=== PATIENT | male | born 1960 | race Caucasian/White ===

== ENCOUNTER 2017-07-29 13:41 | Emergency (ER) | payer BC, OTHER ==
[2017-07-29 13:55] VITALS: RESP 18
--- NOTE | 2017-07-29 15:48 | ED ---
General Adult HPI - General Chief complaint: ENT Stated complaint: Nose Bleed Time Seen by Provider: 07/29/17 15:04 Source: patient, RN notes reviewed, old records reviewed Mode of arrival: ambulatory Limitations: no limitations - History of Present Illness Initial comments: this is a 56-year-old male to the ER for evaluation. Patient coming in for multiple complaints. Patient's complaints center around HEENT, patient has runny nose and occasional bleeding, cough and ear pain. Patient denies any recent fevers. Patient has history of diabetes, history of high blood pressure. Patient recently had left near cauterized secondary to nose bleeding and epistaxis. Patient is not on blood thinners. Patient has history of epistaxis. Patient is also had recurrent episodes of dizziness as of late. Again denies any head trauma, but does have occasional headaches - Related Data Home Medications Medication Instructions Recorded Confirmed Dulaglutide [Trulicity] 1.5 mg SQ MO 07/29/17 07/29/17 Fenofibric Acid (Choline) 135 mg PO DAILY 07/29/17 07/29/17 [Trilipix] Insulin Glargine,Hum.rec.anlog 65 units SQ HS 07/29/17 07/29/17 [Toujeo Solostar] Lisinopril [Prinivil] 5 mg PO DAILY 07/29/17 07/29/17 Multivitamins, Thera [Multivitamin 1 tab PO DAILY 07/29/17 07/29/17 (formulary)] amLODIPine [Norvasc] 2.5 mg PO DAILY 07/29/17 07/29/17 Previous Rx's Medication Instructions Recorded Amoxic-Pot Clav 875-125Mg 1 tab PO Q12HR #20 tablet 07/29/17 [Augmentin 875-125] Allergies Allergy/AdvReac Type Severity Reaction Status Date / Time No Known Allergies Allergy Verified 07/29/17 15:49 Review of Systems ROS Statement: Those systems with pertinent positive or pertinent negative responses have been documented in the HPI. ROS Other: All systems not noted in ROS Statement are negative. Past Medical History Past Medical History: Diabetes Mellitus, Hypertension History of Any Multi-Drug Resistant Organisms: None Reported Additional Past Surgical History / Comment(s): deviated septum Past Psychological History: No Psychological Hx Reported Smoking Status: Current some day smoker Past Alcohol Use History: None Reported Past Drug Use History: None Reported General Exam Limitations: no limitations General appearance: alert, in no apparent distress Head exam: Present: atraumatic, normocephalic, normal inspection Eye exam: Present: normal appearance, PERRL, EOMI. Absent: scleral icterus, conjunctival injection, periorbital swelling ENT exam: Present: normal exam, mucous membranes moist, other ((epistaxis, cauterized, bilateral ear cerumen impaction) Neck exam: Present: normal inspection. Absent: tenderness, meningismus, lymphadenopathy Respiratory exam: Present: normal lung sounds bilaterally. Absent: respiratory distress, wheezes, rales, rhonchi, stridor Cardiovascular Exam: Present: regular rate, normal rhythm, normal heart sounds. Absent: systolic murmur, diastolic murmur, rubs, gallop, clicks GI/Abdominal exam: Present: soft, normal bowel sounds. Absent: distended, tenderness, guarding, rebound, rigid Extremities exam: Present: normal inspection, full ROM, normal capillary refill. Absent: tenderness, pedal edema, joint swelling, calf tenderness Back exam: Present: normal inspection Neurological exam: Present: alert, oriented X3, CN II-XII intact Psychiatric exam: Present: normal affect, normal mood Skin exam: Present: warm, dry, intact, normal color. Absent: rash Course Vital Signs 07/29/17 07/29/17 07/29/17 13:51 16:17 17:12 Temperature 101.5 F H 102.2 F H 101.6 F H Pulse Rate 106 H 104 H Respiratory 18 18 Rate Blood Pressure 132/73 138/69 O2 Sat by Pulse 97 98 Oximetry - Reevaluation(s) Reevaluation #1: 07/29/17 16:49 patient has bilateral serum impaction removed Reevaluation #2: 07/29/17 16:49 patient is able to ambulate without ataxia Reevaluation #3: 07/29/17 16:49 patient feeling better with fever control Medical Decision Making - Medical Decision Making 56 male the ER for evaluation of recurrent epistaxis, sinusitis, serum impaction is improved, patient given antibiotics here in the ER fever control can be discharged home, patient does have positive influenza, no need for Tamiflu, symptoms 1 week - Lab Data Lab Results 07/29/17 Range/Units 16:16 Influenza Type A RNA Detected H (Not Detectd) Influenza Type B (PCR) Not Detected (Not Detectd) - Radiology Data Radiology results: report reviewed (CT brain facial bones. Acute sinusitis, chest x-rays negative for acute disease), image reviewed Disposition Clinical Impression: Cerumen impaction, Left-sided epistaxis, Acute sinusitis, Fever, Influenza A Disposition: HOME SELF-CARE Condition: Good Instructions: Sinusitis (ED), Nosebleed (ED), Influenza (ED) Prescriptions: Amoxic-Pot Clav 875-125Mg [Augmentin 875-125] 1 tab PO Q12HR #20 tablet Referrals: Buster Rios MD [Primary Care Provider] - 1-2 days
[2017-07-29] MEDS ORDERED: IBUPROFEN 600 MG TAB PO STA (16:16)
[2017-07-29] MEDS ORDERED: ACETAMINOPHEN TAB 500 MG TAB PO STA (16:16)
--- NOTE | 2017-07-29 16:18 | CT ---
EXAMINATION TYPE: CT brain wo con, CT facial bones wo con DATE OF EXAM: 07/29/2017 HISTORY: Headache with nosebleeds for 9 days. History of nosebleeds and cauterization. CT DLP: 999.80 mGycm. Automated Exposure Control for Dose Reduction was Utilized. TECHNIQUE: CT scan of the head and facial bones are performed without contrast. COMPARISON: None. FINDINGS: There is no acute intracranial hemorrhage or midline shift identified. Ventricles and sul ci are within normal limits for patient's age. The calvarium is intact. There is air-fluid level in the right maxillary sinus. There is more prominent fluid in the left maxi llary sinus. There is mild to moderate mucosal thickening ethmoid sinuses bilaterally. There is mild mucosal thickening anterior sphenoid sinuses. Nasal bones are intact. Nasal septum shows no fracture. Zygomatic arches are intact. Orbital floors a nd box are intact. The globes are intact bilaterally. The zygomatic arches are intact. IMPRESSION: 1. No acute intracranial hemorrhage or midline shift. 2. No acute facial bone fracture or dislocation. 3. Acute maxillary on chronic paranasal sinus disease.
--- NOTE | 2017-07-29 16:27 | XR ---
EXAMINATION TYPE: XR chest 2V DATE OF EXAM: 07/29/2017 COMPARISON: NONE HISTORY: Cough. TECHNIQUE: Frontal and lateral views of the chest are obtained. FINDINGS: There is chronic parenchymal change without suspicious focal air space opacity, pleural ef fusion, or pneumothorax seen. The cardiac silhouette size is within normal limits. Several old right posterior lateral rib fractures are noted. IMPRESSION: No suspicious acute infiltrate.
[2017-07-29] MEDS ORDERED: AMOXIC-POT CLAV 875-125MG 1 EACH TAB PO STA (16:50)
[2017-07-29] MEDS ORDERED: AMOXIC-POT CLAV 875MG STARTER 2 EACH TABLET PO STA (16:50)
[2017-07-29 17:13] VITALS: TEMP 101.6
[2017-07-29 17:31] VITALS: BP 138/87; PULSE 100
--- NOTE | 2017-07-30 06:52 | CDI ---
Dear Buster West DO: Please do addendum whether any instrument used for removal of cerumen impaction procedure. Thank you, Yassine Gee, Supervisor Of Communications. If you have any questions, please contact [employer] Stock Clerk at [phone]. [facility]
--- NOTE | 2017-08-05 14:14 | ED ---
Medical Decision Making - Lab Data Lab Results 07/29/17 Range/Units 16:16 Influenza Type A RNA Detected H (Not Detectd) Influenza Type B (PCR) Not Detected (Not Detectd) Disposition Clinical Impression: Cerumen impaction, Left-sided epistaxis, Acute sinusitis, Fever, Influenza A Disposition: HOME SELF-CARE Condition: Good Instructions: Sinusitis (ED), Nosebleed (ED), Influenza (ED) Prescriptions: Amoxic-Pot Clav 875-125Mg [Augmentin 875-125] 1 tab PO Q12HR #20 tablet Referrals: Buster Rios MD [Primary Care Provider] - 1-2 days Procedures - Ear Wax Removal Both Ears Cerumenolytic Used: 5-10% Sodium Bicarb solution Ear Canal Irrigated by: Ear Canal Irrigated With: warm saline using syringe/angiocath, warm saline with H2O2 using syringe/angiocath, ear crusher and blender operator device Results: Re-examined: cerumen removed completely TM Visible: TM(s) intact, normal appearance Ear Canal: atraumatic Patient Tolerated Procedure: well Complications: no problems
== END 2017-07-29 17:30 | disposition home or self-care (01) ==
LOC: EC 13:41 → SUPCPDRO 13:41 → EC 17:30
DX: H61.23 Impacted cerumen, bilateral (principal); J10.1 Influenza due to other identified influenza virus with other respiratory manifestations; J01.90 Acute sinusitis, unspecified; R04.0 Epistaxis; R42 Dizziness and giddiness; I10 Essential (primary) hypertension; E11.9 Type 2 diabetes mellitus without complications; F17.200 Nicotine dependence, unspecified, uncomplicated; Z79.4 Long term (current) use of insulin; Z79.899 Other long term (current) drug therapy; Z98.890 Other specified postprocedural states
CPT/HCPCS: 30901; 69209; 70450; 70486; 71046; 87502; 99284

== ENCOUNTER → 2019-09-08 | Outpatient (CLI) | payer OTHER ==
--- NOTE | 2019-09-08 12:04 | XR ---
EXAMINATION TYPE: XR lumbosacral spine min 4V DATE OF EXAM: 09/08/2019 CLINICAL HISTORY: Low back and left flank pain. TECHNIQUE: Frontal, lateral, and oblique images of the lumbar spine are obtained. COMPARISON: None FINDINGS: There are 5 lumbar type vertebral bodies identified. The lumbar spine shows satisfactory alignment without evidence of acute fracture or dislocation. Vertebral body heights are within normal limits. Mild multilevel disc space narrowing. Moderate multilevel anterior and lateral spurring. T he oblique images appear within normal limits. Facet arthropathy lower lumbar levels. Vascular calci fication overlying soft tissue is seen. IMPRESSION: As above.
--- NOTE | 2019-09-08 12:05 | XR ---
EXAMINATION TYPE: XR abdomen 1V DATE OF EXAM: 09/08/2019 11:54 AM CLINICAL HISTORY: Left flank pain TECHNIQUE: Single supine KUB image of the abdomen is obtained. COMPARISON: None. FINDINGS: Multiple phleboliths are seen within the pelvis. No suspicious calculus is seen overlying t he renal shadows although they're partially obscured by moderate degree colonic fecal stasis. No dila jeannette large or small bowel. Moderate degenerative change of the spine and hips. Lung bases are not imag ed. IMPRESSION: No renal calcifications seen on x-ray however there is moderate degree colonic fecal daria is overlying the renal shadows.
== END | disposition home or self-care (01) ==
LOC: RADXRMAIN 11:29
PROVIDERS: ATTEND Urology
DX: K59.8 Other specified functional intestinal disorders (principal); M99.73 Connective tissue and disc stenosis of intervertebral foramina of lumbar region; M47.816 Spondylosis without myelopathy or radiculopathy, lumbar region
CPT/HCPCS: 72110; 74018

== ENCOUNTER → 2023-04-29 | Outpatient (CLI) | payer OTHER ==
--- NOTE | 2023-04-29 14:13 | FL ---
EXAMINATION TYPE: FL barium swallow DATE OF EXAM: 04/29/2023 CLINICAL INDICATION: 62-year-old male R13.19, another dysphagia. Patient with hoarseness and recurren t GERD. COMPARISON: None Total Fluoroscopy Time: 1 minute 8 seconds Total DAP: 608 mGycm2. 46 images obtained. FINDINGS: The swallowing mechanism is normal and hypopharyngeal anatomy is preserved. There is mild anterior e ndplate spondylosis lower cervical spine particularly at C6-C7 anteriorly to mild impression onto the back wall of the cervical esophagus but without any obstruction. The thoracic portion has a normal course and caliber. However, intermittent moderate tertiary perista ltic contractions are demonstrated and there is slight delay in complete clearance of contrast from t he esophagus. The mucosa is normal and no persistent filling defect is encountered. There is a small sliding hiatal hernia. Unable to elicit any gastroesophageal reflux with Valsalva or positional maneuvers. IMPRESSION: 1. Anterior endplate spondylosis lower cervical spine with anterior spurring mildly impressing onto t he back wall of the cervical esophagus without any obstruction. 2. Moderate esophageal dysmotility. 3. Small hiatal hernia. Unable to elicit any gastroesophageal reflux during the course of the exam.
== END | disposition home or self-care (01) ==
LOC: RADUSWWP 09:48
PROVIDERS: ATTEND Otolaryngology
DX: K44.9 Diaphragmatic hernia without obstruction or gangrene (principal); K21.9 Gastro-esophageal reflux disease without esophagitis; K22.4 Dyskinesia of esophagus; M47.812 Spondylosis without myelopathy or radiculopathy, cervical region
CPT/HCPCS: 74220

== ENCOUNTER 2024-01-16 18:53 | Emergency (ER) | payer MEDICARE, OTHER ==
[2024-01-16 19:00] VITALS: TEMP 98
--- NOTE | 2024-01-16 19:16 | ED ---
Abdominal Pain HPI - General Chief Complaint: Abdominal Pain Stated Complaint: Pain in left lower quadrant Time Seen by Provider: 01/16/24 19:10 Source: patient, RN notes reviewed Mode of arrival: wheelchair Limitations: no limitations - History of Present Illness Initial Comments: Is a 63-year-old male presents emergency department chief complaint of left lower thoracic and abdominal pain over the past month. Patient states the pain has been intermittent however today the pain has become constant and is described as a stabbing sensation of the left lower back. He states that the pain will radiate into his mid abdomen and into his groin. Patient denies hematuria, however has had an increase in urinary frequency and urgency will follow he follows with Dr. Limon for this. Denies fevers, chills, nausea, vomiting, diarrhea, hematochezia, dark or tarry stools. Patient denies any recent trauma or injury. Patient states that he saw his primary care provider a few months ago for the pain and it was believed that this was musculoskeletal in nature. - Related Data Home Medications Medication Instructions Recorded Confirmed Dulaglutide [Trulicity] 1.5 mg SQ MO 07/29/17 07/29/17 Fenofibric Acid (Choline) 135 mg PO DAILY 07/29/17 07/29/17 [Trilipix] Insulin Glargine,Hum.rec.anlog 65 units SQ HS 07/29/17 07/29/17 [Toujeo Solostar] Multivitamins, Thera [Multivitamin 1 tab PO DAILY 07/29/17 07/29/17 (formulary)] amLODIPine [Norvasc] 2.5 mg PO DAILY 07/29/17 07/29/17 lisinopriL [Prinivil] 5 mg PO DAILY 07/29/17 07/29/17 Previous Rx's Medication Instructions Recorded Amoxic-Pot Clav 875-125Mg 1 tab PO Q12HR #20 tablet 07/29/17 [Augmentin 875-125] Allergies Allergy/AdvReac Type Severity Reaction Status Date / Time No Known Allergies Allergy Verified 01/16/24 19:00 Review of Systems ROS Statement: Those systems with pertinent positive or pertinent negative responses have been documented in the HPI. ROS Other: All systems not noted in ROS Statement are negative. Past Medical History Past Medical History: Diabetes Mellitus, Hypertension History of Any Multi-Drug Resistant Organisms: None Reported Additional Past Surgical History / Comment(s): deviated septum Past Psychological History: No Psychological Hx Reported Past Alcohol Use History: None Reported Past Drug Use History: None Reported General Exam Limitations: no limitations General appearance: alert, in no apparent distress Head exam: Present: atraumatic, normocephalic, normal inspection Eye exam: Present: normal appearance, PERRL, EOMI. Absent: scleral icterus, conjunctival injection, periorbital swelling ENT exam: Present: normal exam, mucous membranes moist Neck exam: Present: normal inspection. Absent: tenderness, meningismus, lymphadenopathy Respiratory exam: Present: normal lung sounds bilaterally. Absent: respiratory distress, wheezes, rales, rhonchi, stridor Cardiovascular Exam: Present: regular rate, normal rhythm, normal heart sounds. Absent: systolic murmur, diastolic murmur, rubs, gallop, clicks GI/Abdominal exam: Present: soft, tenderness (LLQ), normal bowel sounds. Absent: distended, guarding, rebound, rigid Extremities exam: Present: normal inspection, full ROM, normal capillary refill. Absent: tenderness, pedal edema, joint swelling, calf tenderness Back exam: Present: normal inspection, full ROM (pain with side bending), tenderness (left lumbar/flank), CVA tenderness (L) Neurological exam: Present: alert, oriented X3, CN II-XII intact Psychiatric exam: Present: normal affect, normal mood Skin exam: Present: warm, dry, intact, normal color. Absent: rash Course Vital Signs 01/16/24 01/16/24 01/16/24 18:57 19:24 20:19 Temperature 98.0 F 98.0 F Pulse Rate 80 71 77 Respiratory 20 16 16 Rate Blood Pressure 118/68 127/77 129/76 O2 Sat by Pulse 98 96 95 Oximetry 01/16/24 01/16/24 23:00 23:44 Temperature Pulse Rate 72 64 Respiratory 16 16 Rate Blood Pressure 123/74 129/60 O2 Sat by Pulse 96 97 Oximetry Medical Decision Making - Medical Decision Making Was pt. sent in by a medical professional or institution (, PA, FINANCIAL AID DIRECTOR, urgent care, hospital, or detention...) When possible be specific @ -No Did you speak to anyone other than the patient for history (EMS, parent, family, police, friend...)? What history was obtained from this source @ -No Did you review nursing and triage notes (agree or disagree)? Why? @ -I reviewed and agree with nursing and triage notes Were old charts reviewed (outside hosp., previous admission, EMS record, old EKG, old radiological studies, urgent care reports/EKG's, detention records)? Report findings @ -The patient's previous x-ray KUB in 2019 that was ordered by his urologist for complaint of left flank pain left lower quadrant pain which is most compared to previous EKG with no acute findings. Differential Diagnosis (chest pain, altered mental status, abdominal pain women, abdominal pain men, vaginal bleeding, weakness, fever, dyspnea, syncope, headache, dizziness, GI bleed, back pain, seizure, CVA, palpatations, mental health, musculoskeletal)? @ -Differential Abdominal Pain Men: Appendicitis, cholecystitis, diverticulosis, ischemic bowel, pancreatitis, hepatitis, UTI, gastroenteritis, AAA, incarcerated hernia, bowel obstruction, constipation, inflammatory bowel, hepatitis, peptic ulcer disease, splenic infarction, perforated viscus, testicular torsion, this is not meant to be an all-inclusive list EKG interpreted by me (3pts min.). @ -None X-rays interpreted by me (1pt min.). @ -None done CT interpreted by me (1pt min.). @ -CT of the abdomen and pelvis reveals no signs of bowel obstruction, diverticulosis without diverticulitis, no signs of nephrolithiasis or kidney stones, overall unremarkable exam. U/S interpreted by me (1pt. min.). @ -None done What testing was considered but not performed or refused? (CT, X-rays, U/S, labs)? Why? @ -None What meds were considered but not given or refused? Why? @ -None Did you discuss the management of the patient with other professionals (professionals i.e. , PA, FINANCIAL AID DIRECTOR, lab, RT, psych nurse, social media content specialist, telephone maintenance mechanic, teacher, bank compliance officer, case therapist)? Give summary @ -No Was smoking cessation discussed for >3mins.? @ -No Was critical care preformed (if so, how long)? @ -No Were there social determinants of health that impacted care today? How? (Homelessness, low income, unemployed, alcoholism, drug addiction, transportation, low edu. Level, literacy, decrease access to med. care, retirement, rehab)? @ -No Was there de-escalation of care discussed even if they declined (Discuss DNR or withdrawal of care, Hospice)? DNR status @ -No What co-morbidities impacted this encounter? (DM, HTN, Smoking, COPD, CAD, Cancer, CVA, ARF, Chemo, Hep., AIDS, mental health diagnosis, sleep apnea, morbid obesity)? @ -None Was patient admitted / discharged? Hospital course, mention meds given and route, prescriptions, significant lab abnormalities, going to OR and other pertinent info. @ -Discharged. 63-year-old male with left-sided flank abdominal pain with ration of the left lower abdomen. On examination patient is noted to have pain to palpation of the left flank patient to the left lower quadrant. Vitals are stable on arrival. Evaluate pain medication pending labs and CT results. CBC, CMP unremarkable, amylase and lipase within normal limits, urinalysis no signs of infection, symptoms were positive but consistent with the diabetic medication that the patient is on. CT nonconcerning for acute process. Patient has appointment scheduled with his urologist next week for further evaluation. Additionally, recommend that patient schedules an appoint with his primary care provider due to ongoing left lower quadrant and left flank pain today. Patient's pain has been controlled in the emergency department he is provided with a starter pack pain medication to take as needed over the next few days. All questions answered at bedside and strict return parameters blu with the patient he is verbalized understanding. Case discussed with Dr. Herndon Undiagnosed new problem with uncertain prognosis? @ -No Drug Therapy requiring intensive monitoring for toxicity (Heparin, Nitro, Insulin, Cardizem)? @ -No Were any procedures done? @ -No Diagnosis/symptom? @ -abdominal pain, flank pain Acute, or Chronic, or Acute on Chronic? @ -acute Uncomplicated (without systemic symptoms) or Complicated (systemic symptoms)? @ -uncomplicated Side effects of treatment? @ -No Exacerbation, Progression, or Severe Exacerbation? @ -No Poses a threat to life or bodily function? How? (Chest pain, [place], [place], pneumonia, PE, COPD, DKA, ARF, appy, cholecystitis, CVA, Diverticulitis, Homicidal, Suicidal, threat to staff... and all critical care pts) @ -No - Lab Data Result diagrams: 01/16/24 19:24 01/16/24 19:24 Lab Results 01/16/24 01/16/24 01/16/24 Range/Units 19:24 19:24 19:24 WBC 6.3 (3.8-10.6) k/uL RBC 5.16 (4.30-5.90) m/uL Hgb 14.7 (13.0-17.5) gm/dL Hct 45.0 (39.0-53.0) % MCV 87.2 (80.0-100.0) fL MCH 28.6 (25.0-35.0) pg MCHC 32.8 (31.0-37.0) g/dL RDW 13.5 (11.5-15.5) % Plt Count 226 (150-450) k/uL MPV 7.8 Neutrophils % 63 % Lymphocytes % 26 % Monocytes % 6 % Eosinophils % 3 % Basophils % 0 % Neutrophils # 3.9 (1.3-7.7) k/uL Lymphocytes # 1.7 (1.0-4.8) k/uL Monocytes # 0.4 (0-1.0) k/uL Eosinophils # 0.2 (0-0.7) k/uL Basophils # 0.0 (0-0.2) k/uL Sodium 138 (137-145) mmol/L Potassium 4.3 (3.5-5.1) mmol/L Chloride 106 (98-107) mmol/L Carbon Dioxide 24 (22-30) mmol/L Anion Gap 8 mmol/L BUN 23 H (9-20) mg/dL Creatinine 1.03 (0.66-1.25) mg/dL Est GFR (CKD-EPI)AfAm 88 (>60 ml/min/1.73 sqM) Est GFR (CKD-EPI)NonAf 76 (>60 ml/min/1.73 sqM) Glucose 100 H (74-99) mg/dL Plasma Lactic Acid [place] 0.7 (0.7-2.0) mmol/L Calcium 9.9 (8.4-10.2) mg/dL Total Bilirubin 2.1 H (0.2-1.3) mg/dL AST 22 (17-59) U/L ALT 15 (4-49) U/L Alkaline Phosphatase 59 (38-126) U/L Total Protein 6.8 (6.3-8.2) g/dL Albumin 4.5 (3.5-5.0) g/dL Amylase 34 (30-110) U/L Lipase 132 (23-300) U/L Urine Color Urine Appearance (Clear) Urine pH (5.0-8.0) Ur Specific [place] (1.001-1.035) Urine Protein (Negative) Urine Glucose (UA) (Negative) Urine Ketones (Negative) Urine Blood (Negative) Urine Nitrite (Negative) Urine Bilirubin (Negative) Urine Urobilinogen (<2.0) mg/dL Ur Leukocyte Esterase (Negative) 01/16/24 Range/Units 19:57 WBC (3.8-10.6) k/uL RBC (4.30-5.90) m/uL Hgb (13.0-17.5) gm/dL Hct (39.0-53.0) % MCV (80.0-100.0) fL MCH (25.0-35.0) pg MCHC (31.0-37.0) g/dL RDW (11.5-15.5) % Plt Count (150-450) k/uL MPV Neutrophils % % Lymphocytes % % Monocytes % % Eosinophils % % Basophils % % Neutrophils # (1.3-7.7) k/uL Lymphocytes # (1.0-4.8) k/uL Monocytes # (0-1.0) k/uL Eosinophils # (0-0.7) k/uL Basophils # (0-0.2) k/uL Sodium (137-145) mmol/L Potassium (3.5-5.1) mmol/L Chloride (98-107) mmol/L Carbon Dioxide (22-30) mmol/L Anion Gap mmol/L BUN (9-20) mg/dL Creatinine (0.66-1.25) mg/dL Est GFR (CKD-EPI)AfAm (>60 ml/min/1.73 sqM) Est GFR (CKD-EPI)NonAf (>60 ml/min/1.73 sqM) Glucose (74-99) mg/dL Plasma Lactic Acid [place] (0.7-2.0) mmol/L Calcium (8.4-10.2) mg/dL Total Bilirubin (0.2-1.3) mg/dL AST (17-59) U/L ALT (4-49) U/L Alkaline Phosphatase (38-126) U/L Total Protein (6.3-8.2) g/dL Albumin (3.5-5.0) g/dL Amylase (30-110) U/L Lipase (23-300) U/L Urine Color Yellow Urine Appearance Clear (Clear) Urine pH 5.5 (5.0-8.0) Ur Specific [place] 1.036 H (1.001-1.035) Urine Protein Trace H (Negative) Urine Glucose (UA) 4+ H (Negative) Urine Ketones Negative (Negative) Urine Blood Negative (Negative) Urine Nitrite Negative (Negative) Urine Bilirubin Negative (Negative) Urine Urobilinogen 2.0 (<2.0) mg/dL Ur Leukocyte Esterase Negative (Negative) Disposition Clinical Impression: Pain in left lumbar region of back, Left lateral abdominal pain Disposition: HOME SELF-CARE Condition: Good Instructions (If sedation given, give patient instructions): Abdominal Pain (ED) Additional Instructions: Return to the emergency department for any new or worsening symptoms. Recommend follow-up with your primary care provider next week for further evaluation. Is patient prescribed a controlled substance at d/c from ED?: No Referrals: Buster Rios MD [Primary Care Provider] - 1-2 days Time of Disposition: 23:39
[2024-01-16 19:25] VITALS: RESP 16
[2024-01-16 19:35] LABS: Basophils % (A) 0 %; Eosinophils # (A) 0.2 k/uL (0-0.7); Eosinophils % (A) 3 %; HGB 14.7 gm/dL (13.0-17.5); Lymphocytes # (A) 1.7 k/uL (1.0-4.8); Lymphocytes % (A) 26 %; MCH 28.6 pg (25.0-35.0); MCHC 32.8 g/dL (31.0-37.0); MCV 87.2 fL (80.0-100.0); Mean Platelet Volume 7.8; Monocytes # (A) 0.4 k/uL (0-1.0); Monocytes % (A) 6 %; Neutrophils # (A) 3.9 k/uL (1.3-7.7); Neutrophils % (A) 63 %; Platelet Count 226 k/uL (150-450); RBC 5.16 m/uL (4.30-5.90); RDW 13.5 % (11.5-15.5); WBC 6.3 k/uL (3.8-10.6)
[2024-01-16 19:46] LABS: ALT 15 U/L (4-49); AST 22 U/L (17-59); African American GFR (CKD) 88 (>60 ml/min/1.73 sqM); Albumin 4.5 g/dL (3.5-5.0); Alkaline Phosphatase 59 U/L (38-126); Amylase 34 U/L (30-110); Anion Gap 8 mmol/L; Blood Urea Nitrogen 23 mg/dL (9-20); Calcium 9.9 mg/dL (8.4-10.2); Carbon Dioxide 24 mmol/L (22-30); Chloride 106 mmol/L (98-107); Glucose 100 mg/dL (74-99); Lipase 132 U/L (23-300); Non-African American GFR(CKD) 76 (>60 ml/min/1.73 sqM); Potassium 4.3 mmol/L (3.5-5.1); Sodium 138 mmol/L (137-145); Total Bilirubin 2.1 mg/dL (0.2-1.3); Total Protein 6.8 g/dL (6.3-8.2)
[2024-01-16 20:09] LABS: Appearance,Urine Clear (Clear); Bilirubin,Urine Negative (Negative); Blood,Urine Negative (Negative); Color,Urine Yellow; Glucose,Urine (UA) 4+ (Negative); Ketones,Urine Negative (Negative); Leukocyte Esterase,Urine Negative (Negative); Nitrite,Urine Negative (Negative); PH, Urine 5.5 (5.0-8.0); Protein,Urine Trace (Negative); Specific Gravity,Urine 1.036 (1.001-1.035)
[2024-01-16] MEDS: MORPHINE SULFATE 2 MG/ML SYRINGE IVP ONE (20:16)
[2024-01-16] MEDS: MORPHINE SULFATE 4 MG/ML SYRINGE IVP STA (22:11)
[2024-01-16 23:45] VITALS: BP 129/60; PULSE 64
[2024-01-16] MEDS: ACET/COD 300 MG/30 MG STARTER PACK 6 TAB BTL PO STA (23:45)
--- NOTE | 2024-01-17 01:37 | CT ---
EXAM: CT Abdomen and Pelvis Without Intravenous Contrast CLINICAL HISTORY: ITS.REASON CT Reason: left flank pain w/ radiation into LLQ TECHNIQUE: Axial computed tomography images of the abdomen and pelvis without intravenous contrast. CTDI is 12.2 mGy and DLP is 843 mGy-cm. This CT exam was performed using one or more of the following dose reduction techniques: automated exposure control, adjustment of the mA and/or kV according to patient size, and/or use of iterative reconstruction technique. COMPARISON: No previous studies. FINDINGS: Lung bases: COPD. Minimal scarring and subsegmental atelectasis near the lung bases. ABDOMEN: Liver: Fatty liver. Gallbladder and bile ducts: See below. Pancreas: See below. Spleen: Spleen is normal in contour. Adrenals: The adrenal glands, the head, body, tail of the pancreas and the gallbladder are unremarkable. Kidneys and ureters: Nonspecific stranding about the perinephric spaces. No obstructing stones. Stomach and bowel: Moderate quantity of ingested material in the stomach. Moderate quantity of stool throughout the colon. Diverticulosis without diverticulitis. No obstruction. PELVIS: Appendix: The appendix is seen on coronal image 47 and is unremarkable. Bladder: Mild diffuse bladder wall thickening. No stones. Reproductive: Enlarged heterogeneous prostate gland. ABDOMEN and PELVIS: Intraperitoneal space: Unremarkable. No free air. No significant fluid collection. Bones/joints: No acute fracture. No dislocation. No spondylolysis. Soft tissues: Ischiorectal fat is clean. Vasculature: Atherosclerotic disease. Atherosclerotic disease of the abdominal aorta without change in caliber. No abdominal aortic aneurysm. Lymph nodes: Unremarkable. No retroperitoneal lymphadenopathy. Other findings: Minimal ASCVD. IMPRESSION: 1. The appendix is unremarkable. 2. Gallbladder is unremarkable. 3. No renal calculus or hydronephrosis. 4. No bowel obstruction. 5. Diverticulosis without diverticulitis.
== END 2024-01-16 23:54 | disposition home or self-care (01) ==
LOC: EC 18:53
DX: M54.50 Low back pain, unspecified (principal); R10.32 Left lower quadrant pain
CPT/HCPCS: 36415; 80053; 82150; 83605; 83690; 85025; 81003; 74176; 99284; 96374; 96376; J2270 ×2

== ENCOUNTER 2024-12-27 17:05 | Inpatient (IN) | payer MEDICARE, OTHER ==
--- NOTE | 2024-12-27 18:01 | XR ---
EXAMINATION TYPE: XR chest 2V DATE OF EXAM: 12/27/2024 5:56 PM COMPARISON: Chest radiographs from 07/29/2017 TECHNIQUE: XR chest 2V Frontal and lateral views of the chest. CLINICAL INDICATION:Male, 64 years old with history of Chest Pain; FINDINGS: Lungs/Pleura: There is no evidence of pleural effusion, focal consolidation, or pneumothorax. Pulmonary vascularity: Unremarkable. Heart/mediastinum: Cardiomediastinal silhouette is unremarkable. Musculoskeletal: Multiple level degenerative disc disease changes seen throughout the spine. Remote r ight-sided rib fractures. No acute osseous abnormality. IMPRESSION: No acute cardiopulmonary disease/process. [facility], , 12/27/2024 5:59 PM
[2024-12-27 18:33] LABS: Basophils # (A) 0.05 10*3/uL (0.00-0.10); Basophils % (A) 0.5 %; Eosinophils # (A) 0.04 10*3/uL (0.04-0.35); Eosinophils % (A) 0.4 %; HCT 45.1 % (39.6-50.0); HGB 16.1 g/dL (13.0-17.0); Lymphocytes # (A) 1.24 10*3/uL (0.90-5.00); Lymphocytes % (A) 11.9 %; MCH 30.4 pg (27.0-32.0); MCHC 35.7 g/dL (32.0-37.0); MCV 85.3 fL (80.0-97.0); Monocytes # (A) 0.48 10*3/uL (0.20-1.00); Monocytes % (A) 4.6 %; Neutrophils # (A) 8.54 10*3/uL (1.80-7.70); Neutrophils % (A) 82.3 %; Platelet Count 207 10*3/uL (140-440); RBC 5.29 10*6/uL (4.40-5.60); RDW 13.7 % (11.5-14.5); WBC 10.38 10*3/uL (4.50-10.00)
[2024-12-27 18:44] LABS: ALT 24 U/L (4-49); AST 29 U/L (17-59); African American GFR (CKD) >90 (>60 ml/min/1.73 sqM); Albumin 4.9 g/dL (3.5-5.0); Alkaline Phosphatase 71 U/L (38-126); Anion Gap 13 mmol/L; Blood Urea Nitrogen 14 mg/dL (9-20); Calcium 10.3 mg/dL (8.4-10.2); Carbon Dioxide 22 mmol/L (22-30); Chloride 103 mmol/L (98-107); Glucose 135 mg/dL (74-99); Magnesium 2.0 mg/dL (1.6-2.3); Non-African American GFR(CKD) >90 (>60 ml/min/1.73 sqM); Potassium 4.3 mmol/L (3.5-5.1); Sodium 138 mmol/L (137-145); Total Protein 7.4 g/dL (6.3-8.2)
[2024-12-27 19:04] LABS: INR 0.9 (<1.2); Partial Thromboplastin Time 23.3 sec (22.0-30.0); Prothrombin Time 10.1 sec (10.0-12.5)
[2024-12-27] MEDS: HEPARIN SODIUM 1,000 UN/ML (10ML VL) IV ONE (19:46)
[2024-12-27] MEDS: HEPARIN SOD,PORK IN 0.45% NACL 25,000 UNIT in 0.45% NACL 1 250ML.BAG IV SCH (19:48)
[2024-12-27] MEDS: NITROGLYCERIN SL TABS 0.4 MG TAB SUBLINGUAL STA (19:49)
[2024-12-27] MEDS: ASPIRIN 81 MG PO STA (19:50)
--- NOTE | 2024-12-27 19:54 | ED ---
Chest Pain HPI - General Chief Complaint: Chest Pain Stated Complaint: chest pain, nausea,headaches,jaw and left arm pain Time Seen by Provider: 12/27/24 17:30 Source: patient Mode of arrival: ambulatory Limitations: no limitations - History of Present Illness Initial Comments: 64-year-old male presents emergency department with chest pain. States that he started having chest pain 2 days ago when he was in his yard doing yard work. States that the pain subsided after a couple of hours. The pain radiated to his jaws into his left arm. Today the patient was working out the yard again when the pain came back. Currently states that his pain is 6 out of 10. No history of any coronary disease. States he has had routine stress testing through his primary care office. Patient took 2 ibuprofens today. He denies any shortness of breath. No nausea or vomiting. No other alleviating, precipitating or modifying factors - Related Data Home Medications Medication Instructions Recorded Confirmed Fenofibric Acid (Choline) 135 mg PO DAILY 07/29/17 12/27/24 [Trilipix] Insulin Glargine,Hum.rec.anlog 20 - 65 units SQ BID PRN 07/29/17 12/27/24 [Toujeo Solostar] amLODIPine [Norvasc] 2.5 mg PO DAILY 07/29/17 12/27/24 Cholesterol Med(Unknown) 1 tab PO DAILY 12/27/24 12/27/24 Farxiga(Unknown Dose) 1 tab PO DAILY 12/27/24 12/27/24 Finasteride [Proscar] 5 mg PO HS 12/27/24 12/27/24 Tamsulosin [Flomax] 0.4 mg PO HS 12/27/24 12/27/24 Tirzepatide [Mounjaro] 10 mg SQ MO 12/27/24 12/27/24 Travoprost [Travoprost 0.004%] 1 drop BOTH EYES HS 12/27/24 12/27/24 Previous Rx's Medication Instructions Recorded Aspirin 81 mg PO DAILY 30 Days #30 tab 12/29/24 Atorvastatin [Lipitor] 80 mg PO DAILY 30 Days #30 tab 12/29/24 Losartan [Cozaar] 25 mg PO DAILY 30 Days #30 tab 12/29/24 Metoprolol Succinate (ER) [Toprol 25 mg PO DAILY 30 Days #30 tab 12/29/24 XL] Prasugrel [Effient] 10 mg PO DAILY 30 Days #30 tab 12/29/24 Allergies Allergy/AdvReac Type Severity Reaction Status Date / Time No Known Allergies Allergy Verified 12/27/24 20:49 Review of Systems ROS Statement: Those systems with pertinent positive or pertinent negative responses have been documented in the HPI. ROS Other: All systems not noted in ROS Statement are negative. Past Medical History Past Medical History: Diabetes Mellitus, Hypertension History of Any Multi-Drug Resistant Organisms: None Reported Past Surgical History: Heart Catheterization, Orthopedic Surgery Additional Past Surgical History / Comment(s): deviated septum Past Psychological History: No Psychological Hx Reported Smoking Status: Former smoker Past Alcohol Use History: None Reported Past Drug Use History: None Reported General Exam Limitations: no limitations General appearance: alert, in no apparent distress Head exam: Present: atraumatic, normocephalic, normal inspection Eye exam: Present: normal appearance, PERRL, EOMI. Absent: scleral icterus, conjunctival injection, periorbital swelling ENT exam: Present: normal exam, mucous membranes moist Neck exam: Present: normal inspection. Absent: tenderness, meningismus, lymphadenopathy Respiratory exam: Present: normal lung sounds bilaterally. Absent: respiratory distress, wheezes, rales, rhonchi, stridor Cardiovascular Exam: Present: regular rate, normal rhythm, normal heart sounds. Absent: systolic murmur, diastolic murmur, rubs, gallop, clicks GI/Abdominal exam: Present: soft, normal bowel sounds. Absent: distended, tenderness, guarding, rebound, rigid Extremities exam: Present: normal inspection, full ROM, normal capillary refill. Absent: tenderness, pedal edema, joint swelling, calf tenderness Back exam: Present: normal inspection Neurological exam: Present: alert, oriented X3, CN II-XII intact Psychiatric exam: Present: normal affect, normal mood Skin exam: Present: warm, dry, intact, normal color. Absent: rash Course Vital Signs 12/27/24 12/27/24 12/27/24 17:26 19:14 20:49 Temperature 98 F Pulse Rate 72 66 64 Respiratory 16 18 18 Rate Blood Pressure 178/83 159/88 155/87 O2 Sat by Pulse 98 98 97 Oximetry 12/27/24 22:15 Temperature Pulse Rate 67 Respiratory 18 Rate Blood Pressure 149/96 O2 Sat by Pulse 98 Oximetry Chest Pain MDM - MDM Was pt. sent in by a medical professional or institution (, BERTHA, UNDERGROUND HEAVY EQUIPMENT OPERATOR, urgent care, hospital, or long term...) When possible be specific @ -No Did you speak to anyone other than the patient for history (EMS, parent, family, police, friend...)? What history was obtained from this source @ -Spoke with for history Did you review nursing and triage notes (agree or disagree)? Why? @ -I reviewed and agree with nursing and triage notes Were old charts reviewed (outside hosp., previous admission, EMS record, old EKG, old radiological studies, urgent care reports/EKG's, long term records)? Report findings @ -No old charts were reviewed Differential Diagnosis (chest pain, altered mental status, abdominal pain women, abdominal pain men, vaginal bleeding, weakness, fever, dyspnea, syncope, headache, dizziness, GI bleed, back pain, seizure, CVA, palpatations, mental health, musculoskeletal)? @ -Differential Chest Pain: Stable Angina, Unstable Angina, STEMI, NSTEMI Aortic Dissection, Pneumothorax, Musculoskeletal, Esophageal Spasm GERD, Cholecystitis, Pancreatitis, Zoster, this is not meant to be an all-inclusive list. EKG interpreted by me (3pts min.). @ -First EKG completed at 1734 demonstrates sinus rhythm with a rate of 72. FL interval 142. QRS 102. QTc of 421. ST depression in 3 and aVF with no acute ST segment elevations Repeat EKG done at 1917 continues to demonstrate sinus rhythm with rate of 64. FL interval 141. QRS 102. QTc 450. Continue ST depression 3. No acute ST segment elevation X-rays interpreted by me (1pt min.). @ -Yes which demonstrates no acute process CT interpreted by me (1pt min.). @ -None done U/S interpreted by me (1pt. min.). @ -None done What testing was considered but not performed or refused? (CT, X-rays, U/S, labs)? Why? @ -None What meds were considered but not given or refused? Why? @ -None Did you discuss the management of the patient with other professionals (professionals i.e. , BERTHA, UNDERGROUND HEAVY EQUIPMENT OPERATOR, lab, RT, psych nurse, social media content manager, bevel polisher, teacher, grants officer, case operator)? Give summary @ -Spoke with Dr. Dillon for admission Was smoking cessation discussed for >3mins.? @ -No Was critical care preformed (if so, how long)? @ -Yes, 35 minutes for management of NSTEMI Were there social determinants of health that impacted care today? How? (Homelessness, low income, unemployed, alcoholism, drug addiction, transportation, low edu. Level, literacy, decrease access to med. care, skilled nursing, rehab)? @ -No Was there de-escalation of care discussed even if they declined (Discuss DNR or withdrawal of care, Hospice)? DNR status @ -No What co-morbidities impacted this encounter? (DM, HTN, Smoking, COPD, CAD, Cancer, CVA, ARF, Chemo, Hep., AIDS, mental health diagnosis, sleep apnea, morbid obesity)? @ -Hypertension, hyperlipidemia Was patient admitted / discharged? Hospital course, mention meds given and route, prescriptions, significant lab abnormalities, going to OR and other pertinent info. @ -Upon arrival patient seen and evaluated in bed 18. Thorough history and physical exam was performed. IV was established. Laboratory studies are conducted. Chest x-ray was performed. Twelve-lead EKG demonstrates no acute findings. Troponin is positive. He has no contraindications to heparinization therefore heparin is started. Repeat EKG is performed which continues to demonstrate no acute process. Patient will be admitted at this time. Spoke with Dr. Dillon for admission Undiagnosed new problem with uncertain prognosis? @ -No Drug Therapy requiring intensive monitoring for toxicity (Heparin, Nitro, Insulin, Cardizem)? @ -Heparin Were any procedures done? @ -No Diagnosis/symptom? @ -Acute chest pain, NSTEMI Acute, or Chronic, or Acute on Chronic? @ -Acute Uncomplicated (without systemic symptoms) or Complicated (systemic symptoms)? @ -Complicated Side effects of treatment? @ -Bleeding Exacerbation, Progression, or Severe Exacerbation? @ -No Poses a threat to life or bodily function? How? (Chest pain, [place], [place], pneumonia, PE, COPD, DKA, ARF, appy, cholecystitis, CVA, Diverticulitis, Homicidal, Suicidal, threat to staff... and all critical care pts) @ -Yes this patient does have elevated troponin level Disposition Clinical Impression: Chest pain, Acute non-ST elevation myocardial infarction (NSTEMI) Disposition: ADMITTED IP TO THIS HOSP Condition: Good Is patient prescribed a controlled substance at d/c from ED?: No Time of Disposition: 20:06 Decision to Admit Reason: Admit from EC Decision Date: 12/27/24 Decision Time: 20:07
[2024-12-27] MEDS ORDERED: NALOXONE 0.4 MG/ML 1 ML VIAL IV PRN (20:07)
[2024-12-27] MEDS ORDERED: DEXTROSE 50% SYRINGE 50 ML IVP PRN ×2 (21:26)
--- NOTE | 2024-12-27 22:04 | P.HPIM ---
History of Present Illness H&P Date: 12/27/24 Patient is a 64 y.o M with PMHx of DM, HTH, GASTON, Hx of heart cath in 1995, presenting with DENNIS, Nausea, diaphoresis jaw/chest pain. 2 days ago, he was gardening outside and had an episode of headache, nausea, jaw pain, and 10/10 chest pain. His told him to come in and gave him 2x ibuprofen and a nap. Patient says his sxs spontaneously resolved after 5 hours that night. Yesterday, he did not do any strenuous activity but had 1/10 chest pain. Today, at around 5pm he was doing yard work again when he had the same episode of 7/10 severity chest pain, DENNIS, Nausea, jaw pain which is what prompted him to come to the ED. He denies any SOB, orthopnea, palpitations, edema. Surgical Hx: -Cath in 1995, L circumflex does not go to base of heart -Sx for deviated septum and GASTON Family Hx: -Mom: diabetes -Sister: heart murmur Allergies: None reported HRB: -Smoking: Quit 10+ years ago -No alcohol or other drugs Imaging: -CXR: Negative -EKG: ST depression leads 3 and AVF Labs: -WBC: 10.38 -Ca: 10.3 -Glucose: 135 -Ramone: 1.9 -Trop: 0.234 Vitals: -BP: 178/83 initially, 150s/80s now -Pulse: 64 -RR: 18 -Temp: 98 -SaO2: 97% Review of systems: Pertinent positives and negatives as discussed in HPI, a complete review of systems was performed and all other systems are negative. Physical examination: Vital signs reviewed General: non toxic, no distress, appears at stated age, normal weight Derm: no unusual rashes/lesions, warm Head: atraumatic, normocephalic, symmetric Eyes: EOMI, anicteric sclera, pupils equal round reactive to light ENT: Nose and ears atraumatic Neck: No cervical lymphadenopathy, trachea midline, supple Mouth: no lip lesion, mucus membranes moist Cardiovascular: S1S2 reg, no murmur, positive dorsalis pedis pulse bilateral, no edema, no elevated JVP Lungs: CTA bilateral, no rhonchi, no rales, no accessory muscle use Abdominal: soft, nontender to palpation, no guarding Ext: muscle strength 5 out of 5 in all 4 extremities grossly, no gross muscle atrophy Neuro: CN II-XI grossly intact, no gross focal neuro deficits Psych: Alert, oriented to person, place, and time Assessment/Plan: 64-year-old male with hypertension, prior cardiac catheterization, and multiple cardiovascular risk factors presenting with NSTEMI (elevated troponin, ischemic symptoms, and dynamic ST depression). Blood pressure remains elevated. No evidence of acute heart failure or hemodynamic instability. #NSTEMI, #Hx Cath #HTN Pt has ST depression in leads 3 and AVF and clinical sxs of a NSTEMI. Will need inpatient workup and monitoring and potential for cath if troponin does not chichi ntrend - pending cardiology recs Plan: -Admit with cardiac telemetry -PRN EKG for chest pain -Q3hr Troponin X3 -Lipid panel -Cards consult -Aspirin 325mg loading, 81mg Daily -Metoprolol tartrate 25mg Q6hr -Atorvastatin 80mg daily -Lisinopril 5mg -Nitroglycerin 0.4mg PRN for chest pain -Continue amlodipine 25mg daily -Daily weights, I/Os -Heart healthy diet -heparin gtt #DM Patients glucose was slightly elevated (135) on arrival to ED Plan: -Insulin MDSS -HBA1C #GASTON GASTON could be the cause of his HTN but pt indicates he has had surgery to manage GASTON without a CPAP. Patient shares that he still does not get a good night of sleep even after procedure. Pt not that overweight Plan: -Sleep medicine consult DVT prophylaxis: on heparin gtt per [facility] The patient is admitted with an anticipated [greater] than 2 midnight stay for evaluation of [NSTEMI] CODE STATUS: [FULL CODE] Discussed with: [Dr Polanco] Anticipated discharge place: [Home] I have seen and evaluated the patient today. I Discussed the case with the resident and agree with the resident's findings I edited the assessment and plan as necessary as documented in the resident's note. Past Medical History Past Medical History: Diabetes Mellitus, Hypertension History of Any Multi-Drug Resistant Organisms: None Reported Past Surgical History: Heart Catheterization, Orthopedic Surgery Additional Past Surgical History / Comment(s): deviated septum Past Psychological History: No Psychological Hx Reported Smoking Status: Former smoker Past Alcohol Use History: None Reported Past Drug Use History: None Reported Medications and Allergies Home Medications Medication Instructions Recorded Confirmed Type Fenofibric Acid (Choline) 135 mg PO DAILY 07/29/17 12/27/24 History [Trilipix] Insulin Glargine,Hum.rec.anlog 20 - 65 units SQ BID PRN 07/29/17 12/27/24 History [Toujeo Solostar] amLODIPine [Norvasc] 2.5 mg PO DAILY 07/29/17 12/27/24 History Cholesterol Med(Unknown) 1 tab PO DAILY 12/27/24 12/27/24 History Farxiga(Unknown Dose) 1 tab PO DAILY 12/27/24 12/27/24 History Finasteride [Proscar] 5 mg PO HS 12/27/24 12/27/24 History Tamsulosin [Flomax] 0.4 mg PO HS 12/27/24 12/27/24 History Tirzepatide [Mounjaro] 10 mg SQ MO 12/27/24 12/27/24 History Travoprost [Travoprost 0.004%] 1 drop BOTH EYES HS 12/27/24 12/27/24 History Allergies Allergy/AdvReac Type Severity Reaction Status Date / Time No Known Allergies Allergy Verified 12/27/24 20:49 Physical Exam Vitals: Vital Signs Temp Pulse Resp BP Pulse Ox 12/27/24 20:49 64 18 155/87 97 12/27/24 19:14 66 18 159/88 98 12/27/24 17:26 98 F 72 16 178/83 98 Intake and Output 12/27/24 12/27/24 12/27/24 06:59 14:59 22:59 Other: Weight 95.254 kg Results CBC & Chem 7: 12/27/24 17:36 12/27/24 17:36 Labs: Abnormal Lab Results - Last 24 Hours (Table) 12/27/24 12/27/24 12/27/24 Range/Units 17:36 17:36 17:36 WBC 10.38 H (4.50-10.00) 10*3/uL Neutrophils # 8.54 H (1.80-7.70) 10*3/uL Glucose 135 H (74-99) mg/dL Calcium 10.3 H (8.4-10.2) mg/dL Total Bilirubin 1.8 H (0.2-1.3) mg/dL Troponin I 0.234 H* (0.000-0.034) ng/mL 12/27/24 Range/Units 20:45 WBC (4.50-10.00) 10*3/uL Neutrophils # (1.80-7.70) 10*3/uL Glucose (74-99) mg/dL Calcium (8.4-10.2) mg/dL Total Bilirubin (0.2-1.3) mg/dL Troponin I 0.624 H* (0.000-0.034) ng/mL
[2024-12-27] MEDS: FINASTERIDE 5 MG TAB PO SCH (22:18)
[2024-12-27] MEDS: TAMSULOSIN 0.4 MG CAP.ER.24H PO SCH (22:18)
[2024-12-28] MEDS: MORPHINE SULFATE 4 MG/ML SYRINGE IV PRN (00:02)
[2024-12-28] MEDS: ATORVASTATIN 40 MG TAB PO STA (00:05)
[2024-12-28 02:37] LABS: Basophils # (A) 0.04 10*3/uL (0.00-0.10); Basophils % (A) 0.7 %; Eosinophils # (A) 0.18 10*3/uL (0.04-0.35); Eosinophils % (A) 3.2 %; HCT 41.0 % (39.6-50.0); HGB 14.3 g/dL (13.0-17.0); Lymphocytes # (A) 2.08 10*3/uL (0.90-5.00); Lymphocytes % (A) 36.7 %; MCH 30.0 pg (27.0-32.0); MCHC 34.9 g/dL (32.0-37.0); MCV 86.0 fL (80.0-97.0); Monocytes # (A) 0.41 10*3/uL (0.20-1.00); Monocytes % (A) 7.2 %; Neutrophils # (A) 2.95 10*3/uL (1.80-7.70); Neutrophils % (A) 52.0 %; Platelet Count 197 10*3/uL (140-440); RBC 4.77 10*6/uL (4.40-5.60); RDW 13.6 % (11.5-14.5); WBC 5.67 10*3/uL (4.50-10.00)
[2024-12-28 03:05] LABS: African American GFR (CKD) >90 (>60 ml/min/1.73 sqM); Anion Gap 9 mmol/L; Blood Urea Nitrogen 13 mg/dL (9-20); Calcium 9.5 mg/dL (8.4-10.2); Carbon Dioxide 25 mmol/L (22-30); Chloride 103 mmol/L (98-107); Glucose 139 mg/dL (74-99); Non-African American GFR(CKD) >90 (>60 ml/min/1.73 sqM); Potassium 3.8 mmol/L (3.5-5.1); Sodium 137 mmol/L (137-145)
[2024-12-28] MEDS: LATANOPROST 0.005% OPHTH DROPS 2.5 ML BTL BOTH EYES SCH (05:17)
[2024-12-28 06:21] LABS: Glucose,Whole Blood 149 mg/dL (70-110)
[2024-12-28] MEDS: INSULIN LISPRO (HumaLOG) 100 UNIT/ML 10 mL VL SQ SCH (06:34)
[2024-12-28] MEDS: amLODIPine 2.5 MG TAB PO SCH (08:53)
[2024-12-28] MEDS: FENOFIBRATE 160 MG TAB PO SCH (08:53)
[2024-12-28] MEDS ORDERED: FARXIGA PO SCH (09:00)
[2024-12-28] MEDS ORDERED: ALPRAZolam 0.25 MG TAB PO PRN (09:09)
[2024-12-28] MEDS ORDERED: NITROGLYCERIN SL TABS 0.4 MG TAB SUBLINGUAL PRN (09:09)
[2024-12-28] MEDS: METOPROLOL SUCCINATE (ER) 25 MG TAB.ER.24H PO SCH (09:28)
[2024-12-28] MEDS: ATORVASTATIN 80 MG TAB PO SCH (09:28)
[2024-12-28] MEDS: ASPIRIN 81 MG PO STA (09:28)
[2024-12-28] MEDS: SODIUM CHLORIDE 0.9% 1,000 ML in EMPTY BAG 1 BAG IV SCH (09:54)
[2024-12-28] MEDS: HEPARIN SODIUM,PORCINE 10,000 UNIT in SODIUM CHLORIDE 0.9% 1,000 ML IRRIGATION PRN (09:55)
[2024-12-28] MEDS: HEPARIN SODIUM,PORCINE (1 ML) 2,500 UNIT in SODIUM CHLORIDE 0.9% 250 ML IRRIGATION PRN (09:55)
[2024-12-28] MEDS: MIDAZOLAM 2 MG/2 ML VIAL IVP ONE ×2 (10:07→11:53)
[2024-12-28] MEDS: fentaNYL (PF) 50 MCG/ML 2 ML AMP IVP ONE (10:07)
[2024-12-28] MEDS: LIDOCAINE 1% INJ 10MG/ML (20 ML MDV) SQ ONE (10:08)
[2024-12-28] MEDS: VERAPAMIL SYRINGE (5 MG/10 ML) INTRAARTER ONE (10:09)
[2024-12-28] MEDS: HEPARIN SODIUM 1,000 UN/ML (10ML VL) IVP ONE ×2 (10:15→12:24)
--- NOTE | 2024-12-28 10:21 | P.CRDCN ---
History of Present Illness Consult date: 12/28/24 Chief complaint: nstemi History of present illness: Dr. Swan's addendum Patient was seen and examined at the bedside with the resident. I I agree with assessment and plan documented below NSTEMI. Follow-up heart catheterization showed severe of the stenosis in mid RCA. For this he got the PCI of LCx. He had 50% ostial LCx and LAD disease which was negative IFR. Routine post op heart cath care Patient is a 64-year-old male with a history of hypertension, hyperlipidemia, type 2 diabetes, GASTON, remote CAD with no PCI presents to the ER with complaint of left-sided chest pain. Patient reports that he experienced left-sided chest pain 2 days ago while he was working in the yard. Pain was sudden in onset, 10/10, radiating to both jaws and left arm associated with diaphoresis, lightheadedness and headaches. Patient took 2 aspirin tablets and pain subsided after few hours. Patient experienced another episode of left chest following day when he started working in the yard again with similar presentation as above and this time he came to the ER for further evaluation. EKG shows ST depression and lead II, III, aVF and V5 and V6. Labs positive for troponin trending 0.234, 0.624 and 0.853. WBC 5.6, sodium 137, potassium 3.8, BUN 13, creatinine 0.72, hemoglobin A1c 7.3%, magnesium 2.0,. Patient currently denies chest pain, shortness of breath, swelling of the legs, abdominal pain, nausea, vomiting, fever, chills, numbness or weakness of upper or lower extremities. Patient states that he is a former smoker with a history of [id number], quitting 10 to 15 years ago. Alcohol occasionally. No other drugs. Chest x-ray shows no acute cardiopulmonary process. Vitals: Heart rate 64 bpm, respiratory rate 18, blood pressure 128/70, oxygen saturation 96% on room air Review of systems: Pertinent positives and negatives as discussed in HPI, a complete review of systems was performed and all other systems are negative. Social history: As above in HPI Physical examination: Vital signs reviewed General: non toxic, no distress, appears at stated age, overweight Head: atraumatic, normocephalic, symmetric Eyes: EOMI, no lid lag, anicteric sclera, pupils equal round reactive to light ENT: Nose and ears atraumatic Neck: No cervical lymphadenopathy, trachea midline, supple Mouth: no lip lesion, mucus membranes moist Cardiovascular: S1S2 reg, no murmur, positive dorsalis pedis pulse bilateral, no edema Lungs: CTA bilateral, no rhonchi, no rales, no accessory muscle use Abdominal: soft, nontender to palpation, no guarding Psych: Alert, oriented, appropriate affect Assessment: #NSTEMI #Remote history of CAD with no PCI #Hypertension #Hyperlipidemia #Diabetes mellitus #GASTON Plan: Initiate aspirin 81 mg, high-dose statin therapy Initiate metoprolol succinate 25 mg p.o. daily Continue heparin drip Resume amlodipine 2.5 mg once daily Plan is for cardiac catheterization with possible PCI Order echocardiogram Order lipid panel, hemoglobin A1c and TSH Past Medical History Past Medical History: Diabetes Mellitus, Hypertension History of Any Multi-Drug Resistant Organisms: None Reported Past Surgical History: Heart Catheterization, Orthopedic Surgery Additional Past Surgical History / Comment(s): deviated septum Past Psychological History: No Psychological Hx Reported Smoking Status: Former smoker Past Alcohol Use History: None Reported Past Drug Use History: None Reported Medications and Allergies Home Medications Medication Instructions Recorded Confirmed Type Fenofibric Acid (Choline) 135 mg PO DAILY 07/29/17 12/27/24 History [Trilipix] Insulin Glargine,Hum.rec.anlog 20 - 65 units SQ BID PRN 07/29/17 12/27/24 History [Toujeo Solostar] amLODIPine [Norvasc] 2.5 mg PO DAILY 07/29/17 12/27/24 History Cholesterol Med(Unknown) 1 tab PO DAILY 12/27/24 12/27/24 History Farxiga(Unknown Dose) 1 tab PO DAILY 12/27/24 12/27/24 History Finasteride [Proscar] 5 mg PO HS 12/27/24 12/27/24 History Tamsulosin [Flomax] 0.4 mg PO HS 12/27/24 12/27/24 History Tirzepatide [Mounjaro] 10 mg SQ MO 12/27/24 12/27/24 History Travoprost [Travoprost 0.004%] 1 drop BOTH EYES HS 12/27/24 12/27/24 History Allergies Allergy/AdvReac Type Severity Reaction Status Date / Time No Known Allergies Allergy Verified 12/27/24 20:49 Physical Exam Vitals: Vital Signs Temp Pulse Pulse Resp BP BP Pulse Ox 12/28/24 04:00 98.3 F 69 17 157/77 97 12/28/24 02:00 65 17 12/28/24 00:06 98.1 F 67 18 186/85 99 12/27/24 22:15 67 18 149/96 98 12/27/24 20:49 64 18 155/87 97 12/27/24 19:14 66 18 159/88 98 12/27/24 17:26 98 F 72 16 178/83 98 Intake and Output 12/27/24 12/28/24 12/28/24 22:59 06:59 14:59 Intake Total 571.667 Balance 571.667 Intake: IV 10 Invasive Line 1 10 Intake, IV Titration 81.667 Amount Heparin Sod,Pork in 0.45% 81.667 NaCl 25,000 unit In 0.45 % NaCl 1 250ml.bag @ 10. 498 UNITS/KG/HR 10 mls/hr IV .Q24H [facility] Rx#: [id number] Oral 480 Other: Voiding Method Toilet # Voids 2 Weight 95.254 kg 95.254 kg Results 12/29/24 07:50 12/29/24 07:50 Cardiac Enzymes 12/27/24 12/27/24 12/27/24 Range/Units 17:36 17:36 20:45 AST 29 (17-59) U/L Troponin I 0.234 H* 0.624 H* (0.000-0.034) ng/mL 12/28/24 Range/Units 00:17 AST (17-59) U/L Troponin I 0.853 H* (0.000-0.034) ng/mL Coagulation 12/27/24 12/28/24 Range/Units 17:36 02:15 PT 10.1 (10.0-12.5) sec APTT 23.3 37.1 H (22.0-30.0) sec CBC 12/27/24 12/28/24 Range/Units 17:36 02:15 WBC 10.38 H 5.67 (4.50-10.00) 10*3/uL RBC 5.29 4.77 (4.40-5.60) 10*6/uL Hgb 16.1 14.3 (13.0-17.0) g/dL Hct 45.1 41.0 (39.6-50.0) % Plt Count 207 197 (140-440) 10*3/uL Comprehensive Metabolic Panel 12/27/24 12/28/24 Range/Units 17:36 02:15 Sodium 138 137 (137-145) mmol/L Potassium 4.3 3.8 (3.5-5.1) mmol/L Chloride 103 103 (98-107) mmol/L Carbon Dioxide 22 25 (22-30) mmol/L BUN 14 13 (9-20) mg/dL Creatinine 0.82 0.72 (0.66-1.25) mg/dL Glucose 135 H 139 H (74-99) mg/dL Calcium 10.3 H 9.5 (8.4-10.2) mg/dL AST 29 (17-59) U/L ALT 24 (4-49) U/L Alkaline Phosphatase 71 (38-126) U/L Total Protein 7.4 (6.3-8.2) g/dL Albumin 4.9 (3.5-5.0) g/dL Current Medications Generic Name Dose Route Start Last Admin Trade Name Freq PRN Reason Stop Dose Admin Amlodipine Besylate 2.5 mg 12/28/24 09:00 Amlodipine 2.5 Mg Tab PO DAILY [facility] Dextrose/Water 25 ml 12/27/24 21:26 Dextrose 50% Syringe 50 Ml IVP PER PROTOCOL PRN Hypoglycemia Protocol Dextrose/Water 50 ml 12/27/24 21:26 Dextrose 50% Syringe 50 Ml IVP PER PROTOCOL PRN Hypoglycemia Protocol Fenofibrate 160 mg 12/28/24 09:00 Fenofibrate 160 Mg Tab PO DAILY [facility]AN[facility]A Finasteride 5 mg 12/27/24 21:30 12/27/24 22:18 Finasteride 5 Mg Tab PO 5 mg HS [facility] Administration Heparin Sodium/Sodium Chloride 250 mls @ 10 mls/hr 12/27/24 19:30 12/28/24 03:58 25,000 unit/ Sodium Chloride IV 12.498 units/kg/hr .Q24H [facility] 11.905 mls/hr Titration Protocol 10.498 UNITS/KG/HR Insulin Human Lispro 0 unit 12/28/24 07:30 12/28/24 06:34 Insulin Lispro (Humalog) 100 Unit/Ml 10 Ml Vl SQ Not Given ACHS [facility] Protocol Latanoprost 1 drops 12/27/24 21:30 12/28/24 05:17 Latanoprost 0.005% Ophth Drops 2.5 Ml Btl BOTH EYES Not Given HS [facility] Morphine Sulfate 4 mg 12/27/24 20:07 12/28/24 00:02 Morphine Sulfate 4 Mg/Ml Syringe IV 4 mg Q4HR PRN Administration Severe Pain (Scale 7 to 10) Naloxone HCl 0.2 mg 12/27/24 20:07 Naloxone 0.4 Mg/Ml 1 Ml Vial IV Q2M PRN Opioid Reversal Tamsulosin HCl 0.4 mg 12/27/24 21:30 12/27/24 22:18 Tamsulosin 0.4 Mg Cap.Er.24h PO 0.4 mg HS [facility] Administration Intake and Output 12/27/24 12/28/24 12/28/24 22:59 06:59 14:59 Intake Total 571.667 Balance 571.667 Intake: IV 10 Invasive Line 1 10 Intake, IV Titration 81.667 Amount Heparin Sod,Pork in 0.45% 81.667 NaCl 25,000 unit In 0.45 % NaCl 1 250ml.bag @ 10. 498 UNITS/KG/HR 10 mls/hr IV .Q24H [facility] Rx#: [id number] Oral 480 Other: Voiding Method Toilet # Voids 2 Weight 95.254 kg 95.254 kg 12/28/24 02:15 12/28/24 02:15
[2024-12-28] MEDS: NITROGLYCERIN 1000MCG/10ML SYRINGE INTRACORON ONE (10:27)
[2024-12-28] MEDS: IOPAMIDOL-370 100ML BTL INJ ONE ×2 (10:39→12:27)
[2024-12-28] MEDS: PRASUGREL 10 MG TAB PO ONE (11:50)
[2024-12-28] MEDS ORDERED: ATROPINE SULFATE 0.1 MG/ML 10ML SYRINGE IV PRN (12:25)
[2024-12-28] MEDS ORDERED: ZOLPIDEM 5 MG TAB PO PRN (12:25)
[2024-12-28] MEDS ORDERED: RX INFO: IV CONTRAST WAS GIVEN 1 EACH MISC MISCELLANE PRN (12:25)
[2024-12-28] MEDS ORDERED: MAG HYDROX/AL HYDROX/SIMETH 30 ML CUP PO PRN (12:25)
--- NOTE | 2024-12-28 12:50 | P.CARDCATH ---
Date of Procedure: 12/28/24 Description of Procedure: DIAGNOSTIC CORONARY ANGIOGRAPHY and LEFT HEART CATH REPORT PROCEDURES PERFORMED: Left heart catheterization Selective coronary angiography Moderate conscious sedation 28 mins [Ultrasound assisted] Right radial access INDICATION: NSTEMI BRIEF HPI: 64-year-old presented to the hospital because of substernal chest heaviness while working in his yard. His symptoms started 3 4 days ago. He has more intense symptoms 3 days ago but he is rested and waited and the symptoms thereafter subsided. Because of recurrent symptoms he presented to the hospital. On admission he had evidence of uptrending elevated troponin and he was ruled in as NSTEMI. CONSENT: I have explained the procedural steps of above-mentioned procedures in layman's terms to the patient. I discussed the risks (including but not limited to stroke, emergent vascular or cardiac surgery or ), benefits and alternative therapies for the above-mentioned procedure. I discussed the risks of sedation/analgesia and blood product administration (if indicated). The patient has indicated understanding and acceptance of these risks. Conscious Sedation: Patient's ECG, heart rate, blood pressure, pulse oximetry were monitored throughout the duration of procedure under my direct supervision. 1 mg Versed and 50 mcg Fentanyl were used for induction of moderate conscious sedation. Total duration of moderate concious sedation 28 minutes. PROCEDURAL DETAILS: Patient was prepped and draped in sterile fashion. 1% lidocaine was infiltrated over the right radial artery. Right radial access was obtained via modified seldinger technique. [Ultrasound was used for radial access]. Medications: 5mg of verapamil was administed in the radial sheet. 5000 Units of Heparin was administed once the catheter reached the aortic root Wires and Catheter used: J wire was advanced under fluroscopy to get to aortic root. 5 malian JR 4 diagnostic catheter was utilized obtain left ventricular pressure and pressure gradint across aortic valve. 5 malian JR 4 diagnostic catheter was used to selectively engage the right coronary ostium. 5 malian JL 3.5 diagnostic catheter was utilized to selectively engage the left coronary ostium. Angiographic images were reviewed in detail. Catheter and wire were removed. Radial sheet was flushed. The right radial sheath was removed and a TR band was placed. Patent hemostasis was achieved. The patient tolerated the procedure well. Patient was transported back to the post catheterization holding area in stable condition. TECHNICAL DETAILS Total radiation: 400 mGy Total fluro time: 7 minutes Total contrast used: Isovue 75 mL Complications: [none] Estimated Blood loss: less than 15 ml HEMODYNAMICS: Aortic Pressure: 125/75 mmHg. LV pressure: 130/2 mmHg. LVEDP 6 mmHg. There was no significant gradient across the aortic valve. SELECTIVE CORONARY ARTERIOGRAPHY: LEFT MAIN: The left main is short and large caliber vessel. It bifurcates into the LAD and circumflex. Left main appears angiographically patent. LEFT ANTERIOR DESCENDING CORONARY ARTERY: LAD is 2.5 mm vessel and terminates before reaching the apex. Ostial LAD appears to have 50 to 60% disease. Proximal LAD has mild luminal irregularities. Mid LAD has 30% disease. Distal LAD appears angiographically patent. Mid LAD gives rise to a decent sized septal branch and a medium caliber diagonal branch. Diagonal branch is angiographically patent with mild luminal irregularities. LEFT CIRCUMFLEX CORONARY ARTERY: LCx is nondominant 2.5 mm vessel. Ostial LCx appears to have 60% disease. Midportion of proximal LCx appears to have 50% irregular eccentric plaque. Mid LCx gives a medium caliber OM branch and a small AV groove branch which appears graphically patent. RIGHT CORONARY ARTERY: Dominant vessel large caliber. Proximal RCA is mild luminal irregularities. 1/3 part of mid RCA 95% calcific stenosis. 3 over 3 part of mid RCA has 70% hazy disease. Distal RCA bifurcates into PDA and PL branches. There are 2 mm caliber vessels and has mild nonobstructive disease. IMPRESSION: 95% mid RCA with sequential 70% disease 60% ostial LAD 60% ostial LCx, 50% proximal LCx Normal LVEDP PLAN: IFR assessment of LAD and LCx. If negative PCI of RCA. If positive CABG eval Performing Physician Ron Swan MD, FACC, RPVI
[2024-12-28] MEDS: LOSARTAN 25 MG TAB PO STA (14:25)
[2024-12-28 15:43] LABS: Cholesterol 254.00 mg/dL (0.00-200.00); HDL Cholesterol 59.60 mg/dL (40.00-60.00); LDL Cholesterol,Calculated 149.6 mg/dL (0.0-131.0); Triglycerides 224.00 mg/dL (0.00-149.00); VLDL Calculation 44.80 mg/dL (5.00-40.00)
[2024-12-28 16:36] LABS: Glucose,Whole Blood 138 mg/dL (70-110)
--- NOTE | 2024-12-28 17:15 | P.PN ---
Subjective Progress Note Date: 12/28/24 64 year old M with PMH of DM, BPH, Glaucoma, HTN presents to the ED for chest pain. In the ED he underwent extensive evaluation. BP 178/83, HR 72, T 98F, RR 16, 98% on RA. CBC, Coag panel, CMP significant for WBC 10.38, glu 135, Ca 10.3, T. Bili 1.8. D-Dimer 0.35. CXR no acute process. Trop 0.234-0.624-0.853 with EKG showing NSR with TWI in leads II III aVF. Started on heparin drip and admitted for further workup and management. 12/28 Patient was seen and examined. Underwent cardiac cath showing 95% mid RCA, 60% ostial LAD, 60% ostial LCx, 50% proximal LCx status post PRECIOUS RCA. CBC, Coag panel, BMP significant for APTT 37.1, glu 139. A1c 7.3. General: non toxic, no distress Derm: warm, dry Head: atraumatic, normocephalic, symmetric Eyes: EOMI, no lid lag, anicteric sclera Mouth: no lip lesion, mucus membranes moist Cardiovascular: S1S2 reg, no murmur Lungs: Decreased BS bilateral, no rhonchi, no rales , no accessory muscle use Ext: no gross muscle atrophy, no edema, no contractures Neuro: No FND Psych: AO x 3 Based on my assessment of this patient, this patient meets a high complexity lev el of care. NSTEMI: ASA 81 mg PO QD. Effient 10 mg PO QD. Lipitor 80 mg PO QD. Metoprolol 25 mg PO QD. Telemetry monitoring. Echo ordered. Cardiology on board. DM: A1c 7.3. Continue ISS with Accuchecks ACHS along with hypoglycemic precautions. BPH: Flomax 0.4 mg PO QD. Proscar 5 mg PO QHS. Glaucoma: Latanoprost eye drops. HTN: Amlodipine 2.5 mg PO QD. Metoprolol as above. HLD: Fenofibrate 160 mg PO QD. Lipid panel pending. Resolved: Leukocytosis. CODE STATUS: FULL CODE DVT Prophylaxis: Lovenox GI Prophylaxis: Designated medical POA if patient is not able to make medical decisions for the mselves: I have reviewed the following engineering consultant notes: Cardio note, Cath. I have reviewed the results of the following tests: CBC, BMP, Coag. I have ordered the following tests: BMP in the AM. I have discussed the care of this patient with the following independent historian: CARMITA. I have independently interpreted the following test below: I have discussed the management of this patient with the following physician: Objective - Vital Signs Vital signs: Vital Signs Temp 97.4 F L 12/28/24 08:52 Pulse 64 12/28/24 08:52 Resp 18 12/28/24 08:52 BP 128/70 12/28/24 08:52 Pulse Ox 96 12/28/24 08:52 FiO2 Intake & Output 12/27/24 12/28/24 12/28/24 18:59 06:59 18:59 Intake Total 571.667 10 Balance 571.667 10 Weight 95.254 kg 95.254 kg Intake: IV 10 10 Invasive Line 1 10 10 Intake, IV Titration 81.667 Amount Heparin Sod,Pork in 0.45% 81.667 NaCl 25,000 unit In 0.45 % NaCl 1 250ml.bag @ 10. 498 UNITS/KG/HR 10 mls/hr IV .Q24H [facility] Rx#: [id number] Oral 480 Other: Voiding Method Toilet # Voids 2 - Labs CBC & Chem 7: 12/28/24 02:15 12/28/24 02:15 Labs: Abnormal Lab Results - Last 24 Hours (Table) 12/27/24 12/27/24 12/27/24 Range/Units 17:36 17:36 17:36 WBC 10.38 H (4.50-10.00) 10*3/uL Neutrophils # 8.54 H (1.80-7.70) 10*3/uL APTT (22.0-30.0) sec Glucose 135 H (74-99) mg/dL POC Glucose (mg/dL) (70-110) mg/dL Hemoglobin A1c (<=6.0) % Calcium 10.3 H (8.4-10.2) mg/dL Total Bilirubin 1.8 H (0.2-1.3) mg/dL Troponin I 0.234 H* (0.000-0.034) ng/mL 07/08/25 07/09/25 07/09/25 Range/Units 20:45 00:17 02:15 WBC (4.50-10.00) 10*3/uL Neutrophils # (1.80-7.70) 10*3/uL APTT 37.1 H (22.0-30.0) sec Glucose (74-99) mg/dL POC Glucose (mg/dL) (70-110) mg/dL Hemoglobin A1c (<=6.0) % Calcium (8.4-10.2) mg/dL Total Bilirubin (0.2-1.3) mg/dL Troponin I 0.624 H* 0.853 H* (0.000-0.034) ng/mL 12/28/24 12/28/24 12/28/24 Range/Units 02:15 02:15 06:20 WBC (4.50-10.00) 10*3/uL Neutrophils # (1.80-7.70) 10*3/uL APTT (22.0-30.0) sec Glucose 139 H (74-99) mg/dL POC Glucose (mg/dL) 149 H (70-110) mg/dL Hemoglobin A1c 7.3 H (<=6.0) % Calcium (8.4-10.2) mg/dL Total Bilirubin (0.2-1.3) mg/dL Troponin I (0.000-0.034) ng/mL
[2024-12-28 20:02] LABS: Glucose,Whole Blood 190 mg/dL (70-110)
[2024-12-29 05:56] LABS: Glucose,Whole Blood 160 mg/dL (70-110)
--- NOTE | 2024-12-29 06:52 | P.PCN ---
Date of Procedure: 12/29/24 Operative Findings: Percutaneous coronary intervention Performing physician Roman Orosco MD Procedure performed 1. Successful stenting of the proximal to mid RCA using 5.0 x 33 mm Xience PRECIOUS with an excellent angiographic results and reduction of stenosis from 99% to 0% with adjunctive use of IVUS 2. IFR of the LAD and LCx Indication This is a 64-year-old gentleman who was admitted to the hospital with chest discomfort and was found to have elevated cardiac enzymes. He underwent a heart catheterization by Dr. Swan and was found to have critical disease involving the proximal to mid RCA as well as intermediate to severe disease involving the LAD and LCx. The decision was made to hold IFR of both the LAD and LCx and based on that decide to do an intervention on the RCA Approach Right radial artery Complications None Level of sedation Moderate to sedation length of 48 minutes Procedure description Please refer to diagnostic heart catheterization was performed by Dr. Swan earlier today. Anticoagulation was initiated using heparin with continuous ACT monitoring. The initial plan was to perform an IFR of the LAD and LCx. After zeroing the Doppler wire and equalized in between the Doppler wire and guiding catheter which was a JL 3.5 short guiding catheter the left main was engaged. Subsequently the Doppler wire was advanced to the LAD with IFR of the mid to be at 0.94. The wire subsequently was directed toward the LCx with IFR came to be at 0.95. At that point I decided to intervene on the LAD. Anticoagulation continued using heparin with continuous ACT monitoring and the patient was loaded with antiplatelet. After that I did engage the RCA initially using JR4 guiding catheter but subsequently using an AL 0.75 guiding catheter. Giving the extreme tortuosity and calcified RCA I decided to wire the RCA from the cuticle using 2 wires including 2 run-through wires. After that the predilatation was performed using 3 mm balloon before I did IVUS of the RCA which showed a diameter around 4.5 mm. I was able to deploy 5 mm x 38 mm stent where the stent was positioned under fluoroscopy guidance and deployed under fluoroscopy guidance. Postdilatation was initially performed using 5 mm NC balloon and subsequently 4.5 mm NC balloon. Final IVUS angiogram performed and showed good results and the procedure was completed with no complication Conclusion Critical disease involving the proximal to mid RCA. I did perform successful PCI of the RCA as described above Intermediate to severe disease involving both the LAD and LCx with negative IFR on both. Postprocedure management Dual antiplatelet therapy using aspirin and Effient for 12 months Aggressive cholesterol control Risk factors modification
[2024-12-29] MEDS: LOSARTAN 25 MG TAB PO SCH (07:51)
[2024-12-29] MEDS: ASPIRIN 81 MG PO SCH (07:51)
[2024-12-29] MEDS: PRASUGREL 10 MG TAB PO SCH (07:51)
[2024-12-29] MEDS: ENOXAPARIN 40 MG/0.4 ML SYRINGE SQ SCH (07:51)
[2024-12-29 08:03] LABS: Basophils # (A) 0.05 10*3/uL (0.00-0.10); Basophils % (A) 0.8 %; Eosinophils # (A) 0.21 10*3/uL (0.04-0.35); Eosinophils % (A) 3.3 %; HCT 42.2 % (39.6-50.0); HGB 15.0 g/dL (13.0-17.0); Lymphocytes # (A) 1.74 10*3/uL (0.90-5.00); Lymphocytes % (A) 27.4 %; MCH 30.1 pg (27.0-32.0); MCHC 35.5 g/dL (32.0-37.0); MCV 84.7 fL (80.0-97.0); Monocytes # (A) 0.54 10*3/uL (0.20-1.00); Monocytes % (A) 8.5 %; Neutrophils # (A) 3.79 10*3/uL (1.80-7.70); Neutrophils % (A) 59.8 %; Platelet Count 198 10*3/uL (140-440); RBC 4.98 10*6/uL (4.40-5.60); RDW 13.7 % (11.5-14.5); WBC 6.34 10*3/uL (4.50-10.00)
[2024-12-29 08:19] LABS: African American GFR (CKD) >90 (>60 ml/min/1.73 sqM); Anion Gap 9 mmol/L; Blood Urea Nitrogen 13 mg/dL (9-20); Calcium 9.4 mg/dL (8.4-10.2); Carbon Dioxide 21 mmol/L (22-30); Chloride 109 mmol/L (98-107); Glucose 109 mg/dL (74-99); Non-African American GFR(CKD) 86 (>60 ml/min/1.73 sqM); Potassium 4.2 mmol/L (3.5-5.1); Sodium 139 mmol/L (137-145)
[2024-12-29 11:10] LABS: Glucose,Whole Blood 170 mg/dL (70-110)
[2024-12-29] MEDS: ACETAMINOPHEN TAB 325 MG TAB PO PRN (11:30)
--- NOTE | 2024-12-29 12:08 | CA ---
Transthoracic Echo Report Name: Natalia Parry Age: 64 Gender: M : 1960 Exam Date: 12/28/2024 14:05 Exam Location: [facility] Ht (in): 70 Wt (lb): 210 Ordering Physician: Pool Alejandre MD Attending/Referring Phys: Administrative Manager Kasie Bowens RDCS Procedure CPT: Indications: evaulate cardiac structure assessment Cardiac Hx: Technical Quality: Fair Contrast 1: Total Dose (mL): Contrast 2: Total Dose (mL): MEASUREMENTS (Male / Female) Normal Values 2D ECHO LV Diastolic Diameter PLAX 5.3 cm 4.2 - 5.9 / 3.9 - 5.3 cm LV Systolic Diameter PLAX 3.8 cm IVS Diastolic Thickness 1.1 cm 0.6 - 1.0 / 0.6 - 0.9 cm LVPW Diastolic Thickness 1.1 cm 0.6 - 1.0 / 0.6 - 0.9 cm LV Relative Wall Thickness 0.4 RV Internal Dim ED PLAX 2.6 cm LA Systolic Diameter LX 4.2 cm 3.0 - 4.0 / 2.7 - 3.8 cm LV Diastolic Volume MOD BP 121.3 cm??? 67 - 155 / 56 - 104 cm??? LV Systolic Volume MOD BP 60.6 cm??? - 58 / 19 - 49 cm??? LV Ejection Fraction MOD BP 50.1 % >= 55 % LV Cardiac Index MOD BP 1939.2 cm???/min???m??? LV Diastolic Volume MOD 4C 131.4 cm??? LV Systolic Volume MOD 4C 66.6 cm??? LV Ejection Fraction MOD 4C 49.3 % LV Cardiac Index MOD 4C 2068.0 cm???/min???m??? LV Diastolic Length 4C 9.0 cm LV Systolic Length 4C 7.5 cm LV Diastolic Volume MOD 2C 105.5 cm??? LV Systolic Volume MOD 2C 54.3 cm??? LV Ejection Fraction MOD 2C 48.5 % LV Cardiac Index MOD 2C 1633.7 cm???/min???m??? LV Diastolic Length 2C 8.4 cm LV Systolic Length 2C 7.6 cm LA Volume 42.9 cm??? 18 - 58 / 22 - 52 cm??? LA Volume Index 19.6 cm???/m??? 16 - 28 cm???/m??? M-MODE Aortic Root Diameter MM 3.6 cm LA Systolic Diameter MM 2.9 cm LA Ao Ratio MM 0.8 AV Cusp Separation MM 1.8 cm DOPPLER AV Peak Velocity 143.4 cm/s AV Peak Gradient 8.2 mmHg MV Area PHT 3.3 cm??? Mitral E Point Velocity 67.7 cm/s Mitral A Point Velocity 78.1 cm/s Mitral E to A Ratio 0.9 MV Deceleration Time 228.1 ms TR Peak Velocity 212.6 cm/s TR Peak Gradient 18.1 mmHg FINDINGS Left Ventricle Left ventricular ejection fraction is estimated at 45-50 %. Left ventricular cavity size normal. Mildly increased left ventricular systolic volume. Left ventricular wall thickness normal. Distal inferior wall hypokinesia. Right Ventricle Normal right ventricular size and function. Right Atrium Normal right atrial size. No right atrial thrombus or mass seen. Left Atrium Mildly increased left atrial diameter. No left atrial thrombus or mass present. Mitral Valve Structurally normal mitral valve. No mitral stenosis, regurgitation or prolapse. Aortic Valve Trileaflet aortic valve. Thickened aortic valve without stenosis. No aortic regurgitation. Tricuspid Valve Structurally normal tricuspid valve. No tricuspid stenosis, regurgitation or prolapse. Pulmonic Valve Structurally normal pulmonic valve. No pulmonic stenosis. Trace pulmonic regurgitation. Pericardium Normal pericardium. No pericardial effusion. Aorta Normal size aortic root and proximal ascending aorta. CONCLUSIONS LVEF 45 to 50% Distal inferior wall hypokinesia Mild concentric LVH Mild left atrial dilatation No significant valvular dysfunction No pericardial effusion Previewed by: Dr Ron Swan (Electronically Signed) Final Date: 29 December 2024 12:07
[2024-12-29 12:14] VITALS: BMI 31.3
[2024-12-29 12:27] VITALS: BP 137/77; PULSE 75; RESP 20; TEMP 98.8
--- NOTE | 2024-12-29 13:48 | P.DS ---
Providers Date of admission: 12/27/24 20:09 Attending physician: Sara Polanco MD Consults: 12/27/24 20:07 Consult Physician Urgent Consulting Provider: Cardiology Bhupendra Consult Reason/Comments: acute chest pain, nstemi Do you want consulting provider notified?: Yes 12/28/24 12:25 Consult Physician Routine Consulting Provider: Tejal Huizar Consult Reason/Comments: Post Interventional Patient Do you want consulting provider notified?: Already Contacted [facility] Course: Discharge Diagnosis: Non-ST elevation VT status post stent to the RCA Diabetes mellitus BPH Glaucoma Hypertension D Hospital Course: 64 year old M with PMH of DM, BPH, Glaucoma, HTN presents to the ED for chest pain. In the ED he underwent extensive evaluation. BP 178/83, HR 72, T 98F, RR 16, 98% on RA. CBC, Coag panel, CMP significant for WBC 10.38, glu 135, Ca 10.3, T. Bili 1.8. D-Dimer 0.35. CXR no acute process. Trop 0.234-0.624-0.853 with EKG showing NSR with TWI in leads II III aVF. Started on heparin drip and admitted for further workup and management. Patient underwent cardiac cath showing 95% mid RCA, 60% ostial LAD, 60% ostial LCx, 50% proximal LCx status post PRECIOUS RCA. Patient started on aspirin 81 mg p.o. daily, losartan 25 mg p.o. daily, metoprolol 25 mg p.o. daily, Effient 10 mg p.o. daily.. Echocardiogram showed EF of 45 to 50%. Cardiology cleared the patient for discharge. I counseled patient extensively about taking his medications especially his dual antiplatelet therapy. Patient seen and examined at bedside.[] Vital signs reviewed and stable. General: [non toxic], [no distress], [appears at stated age] Derm: [warm], [dry] Head: [atraumatic], [normocephalic], [symmetric] Eyes: [EOMI], [no lid lag], [anicteric sclera] Mouth: [no lip lesion], [mucus membranes moist] Cardiovascular: [S1S2 reg], [no murmur], [positive posterior tibial pulse bilateral], Lungs: [CTA bilateral], [no rhonchi, no rales] , [no accessory muscle use] Abdominal: [soft], [ nontender to palpation], [no guarding], [no appreciable organomegaly] Ext: [no gross muscle atrophy], [no edema], [no contractures] Neuro: [ CN II-XI grossly intact], [no focal neuro deficits] Psych: [Alert], [oriented], [appropriate affect] A total of [35] minutes of time were spent preparing this complex discharge summary . Patient discharged on [12/29/2024] Patient Condition at Discharge: Good Plan - Discharge Summary Discharge Rx Participant: Yes New Discharge Prescriptions: New Aspirin 81 mg PO DAILY 30 Days #30 tab Prasugrel [Effient] 10 mg PO DAILY 30 Days #30 tab Atorvastatin [Lipitor] 80 mg PO DAILY 30 Days #30 tab Metoprolol Succinate (ER) [Toprol XL] 25 mg PO DAILY 30 Days #30 tab Losartan [Cozaar] 25 mg PO DAILY 30 Days #30 tab Continue Fenofibric Acid (Choline) [Trilipix] 135 mg PO DAILY amLODIPine [Norvasc] 2.5 mg PO DAILY Insulin Glargine,Hum.rec.anlog [Toujeo Solostar] 20 - 65 units SQ BID PRN PRN Reason: Blood Sugar - High Tirzepatide [Mounjaro] 10 mg SQ MO Tamsulosin [Flomax] 0.4 mg PO HS Farxiga(Unknown Dose) 1 tab PO DAILY Travoprost [Travoprost 0.004%] 1 drop BOTH EYES HS Finasteride [Proscar] 5 mg PO HS Cholesterol Med(Unknown) 1 tab PO DAILY Discharge Medication List Fenofibric Acid (Choline) [Trilipix] 135 mg PO DAILY 07/29/17 [History] Insulin Glargine,Hum.rec.anlog [Toujeo Solostar] 20 - 65 units SQ BID PRN 07/29/17 [History] amLODIPine [Norvasc] 2.5 mg PO DAILY 07/29/17 [History] Cholesterol Med(Unknown) 1 tab PO DAILY 12/27/24 [History] Farxiga(Unknown Dose) 1 tab PO DAILY 12/27/24 [History] Finasteride [Proscar] 5 mg PO HS 12/27/24 [History] Tamsulosin [Flomax] 0.4 mg PO HS 12/27/24 [History] Tirzepatide [Mounjaro] 10 mg SQ MO 12/27/24 [History] Travoprost [Travoprost 0.004%] 1 drop BOTH EYES HS 12/27/24 [History] Aspirin 81 mg PO DAILY 30 Days #30 tab 12/29/24 [Rx] Atorvastatin [Lipitor] 80 mg PO DAILY 30 Days #30 tab 12/29/24 [Rx] Losartan [Cozaar] 25 mg PO DAILY 30 Days #30 tab 12/29/24 [Rx] Metoprolol Succinate (ER) [Toprol XL] 25 mg PO DAILY 30 Days #30 tab 12/29/24 [Rx] Prasugrel [Effient] 10 mg PO DAILY 30 Days #30 tab 12/29/24 [Rx] Follow up Appointment(s)/Referral(s): Buster Rios MD [Primary Care Provider] - 1-2 days Roman Orosco MD [STAFF PHYSICIAN] - 1 Week Discharge Disposition: HOME SELF-CARE
--- NOTE | 2024-12-29 18:11 | P.PN ---
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 Aspirin Effient Patient is a 64-year-old male with a history of hypertension, hyperlipidemia, type 2 diabetes, GASTON, remote CAD with no PCI presents to the ER with complaint of left-sided chest pain. Patient reports that he experienced left-sided chest pain 2 days ago while he was working in the yard. Pain was sudden in onset, 03/31, radiating to both jaws and left arm associated with diaphoresis, lightheadedness and headaches. Patient took 2 aspirin tablets and pain subsided after few hours. Patient experienced another episode of left chest following day when he started working in the yard again with similar presentation as above and this time he came to the ER for further evaluation. EKG shows ST depression and lead II, III, aVF and V5 and V6. Labs positive for troponin trending 0.234, 0.624 and 0.853. WBC 5.6, sodium 137, potassium 3.8, BUN 13, creatinine 0.72, hemoglobin A1c 7.3%, magnesium 2.0,. Patient currently denies chest pain, shortness of breath, swelling of the legs, abdominal pain, nausea, vomiting, fever, chills, numbness or weakness of upper or lower extremities. Patient states that he is a former smoker with a history of [id number]-adue, quitting 10 to 15 years ago. Alcohol occasionally. No other drugs. Chest x-ray shows no acute cardiopulmonary process. 12/29/2024: Patient was seen and examined at bedside. Patient underwent cardiac lisa terization yesterday which showed 95% mid RCA, 60% ostial LAD, 60% ostial left circumflex and 50% proximal left circumflex. Patient underwent successful stenting to proximal to mid RCA and IFR of the ostial LAD and ostial left circumflex arteries. Patient is back in the room and has tolerated the procedure well. Reports no chest pain and is ambulating. WBC 6.3, hemoglobin 15.0, sodium 139, potassium 4.2, BUN 13, creatinine 0.93. Echocardiogram shows LVEF of 45 to 50% with distal inferior wall hypokinesis. Physical examination: Vital signs reviewed General: non toxic, no distress, appears at stated age, overweight Head: atraumatic, normocephalic, symmetric Eyes: EOMI, no lid lag, anicteric sclera, pupils equal round reactive to light ENT: Nose and ears atraumatic Neck: No cervical lymphadenopathy, trachea midline, supple Mouth: no lip lesion, mucus membranes moist Cardiovascular: S1S2 reg, no murmur, positive dorsalis pedis pulse bilateral, no edema Lungs: CTA bilateral, no rhonchi, no rales, no accessory muscle use Abdominal: soft, nontender to palpation, no guarding Psych: Alert, oriented, appropriate affect Assessment: #NSTEMI status post stenting to the mid RCA #Remote history of CAD with no PCI #Hypertension #Hyperlipidemia #Diabetes mellitus #GASTON Plan: Continue with dual antiplatelet therapy with aspirin and prasugrel for 12 months Continue high-dose statin therapy Continue metoprolol succinate 25 mg p.o. daily Resume hypertensive medications Patient to follow-up with Dr. Swan within 1 week upon discharge Objective - Vital Signs Vital signs: Vital Signs Temp 98.8 F 12/29/24 11:00 Pulse 75 12/29/24 11:00 Resp 20 12/29/24 11:00 BP 137/77 12/29/24 11:00 Pulse Ox 97 12/29/24 11:00 FiO2 Intake & Output 12/28/24 12/29/24 12/29/24 18:59 06:59 18:59 Intake Total 738 1540 118 Balance 738 1540 118 Weight 99 kg 99 kg Intake: IV 620 40 Invasive Line 1 20 20 Invasive Line 2 20 Oral 118 1500 118 Other: Voiding Method Toilet Toilet Toilet # Voids 1 1 - Labs CBC & Chem 7: 12/29/24 07:50 12/29/24 07:50 Labs: Abnormal Lab Results - Last 24 Hours (Table) 12/28/24 12/29/24 12/29/24 Range/Units 20:00 05:55 07:50 Chloride 109 H (98-107) mmol/L Carbon Dioxide 21 L (22-30) mmol/L Glucose 109 H (74-99) mg/dL POC Glucose (mg/dL) 190 H 160 H (70-110) mg/dL 12/29/24 Range/Units 11:09 Chloride (98-107) mmol/L Carbon Dioxide (22-30) mmol/L Glucose (74-99) mg/dL POC Glucose (mg/dL) 170 H (70-110) mg/dL
--- NOTE | 2025-01-03 13:56 | CDI ---
Documentation Clarification Form Date: 01/03/2025 01:36:49 PM From: Cathy Frazier Phone: Admit Date: 12/27/2024 08:09:00 PM Patient Name: Nataila Parry Visit Number: [id number] Discharge Date: 12/29/2024 03:00:00 PM ATTENTION: The Clinical Documentation Specialists (CDI) and [facility] Coding Staff appreciate your assistance in clarifying documentation. Please respond to the clarification below the line at the bottom and electronically sign. The CDI & [facility] Coding staff will review the response and follow-up if needed. Please note: Queries are made part of the Legal Health Record. If you have any questions, please contact the author of this message via ITS. Doctor/Provider: Ron Swan HFmrEFwith EF of 45 to 50% is documented per Progress Note 12/29 which may lack sufficient clinical evidence/support in the medical record. Additional clarification is requested. History/Risk Factors: 64yo M, NSTEMI, DMII, BPH, glaucoma, HTN, HLD, GASTON, overweight, former smoker Clinical Indicators: VS/Pulse OX: 12/27/2506/01/2507 17:26 19:14 20:49 T 98 AR 72 66 64 RR 16 18 18 BP178/83 159/88 155/87 O2 Sat 98 98 97 12/27/24 22:15 AR 67 RR 18 BP149/96 O2 Sat 98 Echo: LVEF 45 to 50%. Distal inferior wall hypokinesia. Mild concentric LVH. Mild left atrialdilatation. No significantvalvulardysfunction. Nopericardial effusion Chest x ray: FINDINGS: Lungs/Pleura: There isno evidence ofpleural effusion, focal consolidation, or pneumothorax. Pulmonary vascularity: Unremarkable. Heart/mediastinum: Cardiomediastinal silhouette is unremarkable. IMPRESSION: No acute cardiopulmonary disease/process. Treatment: monitored In your professional opinion, can you please clarify the acuity of CHF if known? [ ] Acute Systolic Heart Failure (reduced EF) [ ] Chronic Systolic Heart Failure (reduced EF) [ ] Acute on Chronic Systolic Heart Failure (reduced EF) [ ] No additional diagnosis/not clinically significant [ ] Other, please specify [ ] Unable to determine (Template Last Revised: July 2020) MTDD
--- NOTE | 2025-01-03 14:09 | CDI ---
Documentation Clarification Form Date: 01/03/2025 01:57:19 PM From: Cathy Frazier Phone: Admit Date: 12/27/2024 08:09:00 PM Patient Name: Natalia Parry Visit Number: [id number] Discharge Date: 12/29/2024 03:00:00 PM ATTENTION: The Clinical Documentation Specialists (CDI) and [facility] Coding Staff appreciate your assistance in clarifying documentation. Please respond to the clarification below the line at the bottom and electronically sign. The CDI & [facility] Coding staff will review the response and follow-up if needed. Please note: Queries are made part of the Legal Health Record. If you have any questions, please contact the author of this message via ITS. Doctor/Provider: Sara Polanco Diabetes glucose was slightlyelevatedon arrival to ED. Additional specificity regarding the diabetes diagnosis is requested. History/Risk Factors: 64yo M, NSTEMI, DMII, BPH, glaucoma, HTN, HLD, GASTON, overweight, former smoker Clinical Indicators: A1C 7.3 Glucose: 12/27 135 7 135-149 12/29 109-190 Farxiga (Unknown Dose) 1 tab PO DAILY Insulin Glargine, Hum.rec.anlog 20 - 65 units SQ BID PRN [Toujeo Solostar] Tirzepatide [Mounjaro] 10 mg SQ MO Treatment: monitored Please clarify the type of diabetes, if known: [ X ] Diabetes Type 2 no complications [ ] Diabetes Type 2 with hyperglycemia [ ] Other, please specify [ ] Unable to Determine (Template Last Revised: August 2020) MTDD
== END 2024-12-29 15:00 | disposition home or self-care (01) | DRG 322 ==
LOC: EC 17:05 → 3SCARD 20:09
PROVIDERS: ADMIT Internal Medicine; ATTEND Internal Medicine
PROC: 4A023N7 Measurement of Cardiac Sampling and Pressure, Left Heart, Percutaneous Approach (ICD-10-PCS; 2024-12-28 11:40)
PROC: B2111ZZ Fluoroscopy of Multiple Coronary Arteries using Low Osmolar Contrast (ICD-10-PCS; 2024-12-28 11:40)
PROC: 027034Z Dilation of Coronary Artery, One Artery with Drug-eluting Intraluminal Device, Percutaneous Approach (ICD-10-PCS; principal; 2024-12-29)
PROC: B240ZZ3 Ultrasonography of Single Coronary Artery, Intravascular (ICD-10-PCS; 2024-12-29)
PROC: 4A033BC Measurement of Arterial Pressure, Coronary, Percutaneous Approach (ICD-10-PCS; 2024-12-29)
DX: I21.4 Non-ST elevation (NSTEMI) myocardial infarction (principal); E11.9 Type 2 diabetes mellitus without complications; Z68.31 Body mass index [BMI] 31.0-31.9, adult; I10 Essential (primary) hypertension; Z79.4 Long term (current) use of insulin; E66.3 Overweight; I25.10 Atherosclerotic heart disease of native coronary artery without angina pectoris; G47.33 Obstructive sleep apnea (adult) (pediatric); N40.0 Benign prostatic hyperplasia without lower urinary tract symptoms; H40.9 Unspecified glaucoma; E78.5 Hyperlipidemia, unspecified; Z87.891 Personal history of nicotine dependence; Z79.899 Other long term (current) drug therapy; Z79.84 Long term (current) use of oral hypoglycemic drugs; Z79.85 Long-term (current) use of injectable non-insulin antidiabetic drugs
CPT/HCPCS: 36415; 71046; 80048; 80053; 80061; 83036; 83735; 84443; 84484; 85025; 85379; 85610; 85730; 92978; 93005; 93306; 93458; 93799; 96365; 96366; 99285